=== PATIENT | female | born 1975 ===

== ENCOUNTER 2024-11-21 18:23 | Inpatient (IN) | payer BC, SELFPAY ==
[2024-11-21] VITALS (42 sets, daily range): BP systolic 77–128; BP diastolic 48–88; PULSE 79–119; RESP 14–26; TEMP 36.7–37.7; O2SAT 93–100
--- NOTE | ~2024-11-21 | US_ITS ---
EXAMINATION: US abdomen limited DATE: 11/22/2024 08:45 INDICATION: Elevated liver function tests TECHNIQUE: Multiple grayscale and Doppler ultrasound images of the abdomen were obtained. COMPARISON: CT dated 11/21/2024 FINDINGS: The pancreatic head and body are normal in appearance. The pancreatic tail is not visualized. Liver has normal contour, with a smooth surface. There is increased parenchymal echogenicity and coarsened echotexture consistent with diffuse hepatic steatosis. There is a 2.7 x 2.6 x 2.5 cm region of relati vely decreased echogenicity peripherally in segment 3 of the left hepatic lobe along the marciano hepati s which is also evident is a geographic region of subtly increased attenuation on the prior CT consis tent with focal fatty sparing. Additional smaller region of relatively hypoechoic and higher attenuat ion focal fatty sparing measuring 1.8 x 1.7 x 1.2 cm along the gallbladder fossa. No intrahepatic bi liary duct dilation suspected. Portal venous flow was seen in the hepatopetal, normal direction and h as normal Doppler waveform. The gallbladder is normal in appearance. There is no cholelithiasis. The common bile duct measures 5-6 mm, which is normal. Sonographic Reyes sign was reported as negative by the commercial escrow officer.Visualized portion of the proximal inferior vena cava is normal. IMPRESSION: 1. Diffuse hepatic steatosis with regions of focal hepatic steatosis along the gallbladder fossa and no significant 3 along the marciano hepatis. Reviewed, dictated and finalized at location A. ER MANAGER
--- NOTE | ~2024-11-21 | XR_ITS ---
EXAMINATION: XR retrograde pyelo w/stent RT DATE: 11/22/2024 00:57 INDICATION: Nephrolithiasis TECHNIQUE: 4 fluoroscopic images of the abdomen and pelvis were obtained during procedure performed veronica Duran. Radiologist was not present for the imaging or procedure. The amount of fluoroscopy t leidy used during this procedure was 0.7 minutes. COMPARISON: None. FINDINGS: Cannulation and retrograde contrast injection into the right ureter and renal collecting system. The 11 mm right renal stone identified on prior CT is unable to be visualized and may have either been ex tracted cores obscured by the contrast. A wire is advanced into the right renal collecting system and internal ureteral stent subsequently placed with proximal loop formed in the right renal pelvis. IMPRESSION: 1. Fluoroscopy utilized during right retrograde pyelogram and placement of a right internal ureteral stent which is in expected position. See procedure note for further detail. Reviewed, dictated and finalized at location A. [employer]OR HANGING AND TRIMMING IMPRESSION: 1. Fluoroscopy utilized during right retrograde pyelogram and placement of a ri ght internal ureteral stent which is in expected position. See procedure note f or further detail.
--- NOTE | ~2024-11-21 | CT_ITS ---
Clinical Indication: Right lower lobe lesion, liver lesion CT Scan of the Chest and Abdomen with Contrast: Technique: Contiguous sections were acquired throughout the chest and abdomen after intravenous admin istration of 100 cc of Omnipaque 350. Dose reduction technique was used on this scan by utilizing au tomated exposure control and iterative reconstruction technique. The dose-length product (DLP) was 66 6.62 mGy-cm. Comparison: 11/21/2024 Findings: There is no evidence of any significant mediastinal, hilar or axillary lymphadenopathy. The mediastin al soft tissues appear normal. There is no evidence of pleural or pericardial effusion. 5 mm pleural-based nodule present in the superior segment right lower lobe (axial image 35). 12 mm ri ght lower lobe pulmonary nodule present (axial image 66). 9 mm lingular nodule present, pleural-based (axial image 63). There is probable diffuse hepatic steatosis. The spleen, pancreas, gallbladder, adrenals and left kid daksha are within normal limits. Right ureteral stent in place. There is mild probable decreased right n ephrogram as compared to the left side, with minimal right hydronephrosis. Punctate nonobstructing ri ght renal stone present. No evidence of aortic aneurysm. No lymphadenopathy. Visualized bowel loops are unremarkable. No ascites. Impression: 3 pulmonary nodules, as above, largest measuring 12 mm at the right lower lobe. Consider short-term f ollow-up CT in 1-3 months, versus PET/CT or attempted tissue sampling. Probable diffuse hepatic steatosis. Right ureteral stent with minimal right hydronephrosis and mildly delayed right nephrogram as compare d to the left side. Correlate clinically for pyelonephritis. Punctate nonobstructing right renal ston e present. Reviewed, dictated and finalized at [facility]. NER MACHINE TENDER Impression: 3 pulmonary nodules, as above, largest measuring 12 mm at the right lower lobe. Consider short-term follow-up CT in 1-3 months, versus PET/CT or attempted tis mary alice sampling. Probable diffuse hepatic steatosis. Right ureteral stent with minimal right hydronephrosis and mildly delayed right nephrogram as compared to the left side. Correlate clinically for pyelonephrit is. Punctate nonobstructing right renal stone present.
--- NOTE | ~2024-11-21 | XR_ITS ---
CHEST RADIOGRAPH CLINICAL HISTORY: SOB, CP . COMPARISON: None available TECHNIQUE: Single portable view of the chest. FINDINGS The cardiomediastinal silhouette is unremarkable. The lungs are clear. Visualized osseous structures and soft tissues are unremarkable. IMPRESSION: No focal infiltrate or effusion. Reviewed, dictated and finalized at location A. MARKER
--- NOTE | ~2024-11-21 | CT_ITS ---
CLINICAL INDICATION: Diarrhea and leukocytosis COMPARISON: None. TECHNIQUE: Multiple contiguous axial images of the abdomen and pelvis were performed without the admi nistration of intravenous contrast The dose-length product (DLP) was 933.66 mGy-cm. Automated exposure control and iterative reconstruction technique were employed. FINDINGS/OBSERVATIONS: Visualized lower thorax: A 12 x 10 mm nodule is identified right lower lobe. The remainder of the bilateral lung bases are clear. The heart is of normal size, without pericardial effusion. Liver: The liver demonstrates homogeneous attenuation and is enlarged measuring 22 cm in longitudinal dimens ion. Gallbladder and biliary system: The gallbladder is only minimally distended, and otherwise unremarkable. Pancreas: Limited evaluation of the pancreas secondary to the lack of intravenous contrast. Spleen: The spleen demonstrates homogeneous attenuation and is not enlarged measuring 10 cm in longitudinal d imension. Kidneys: Significant right-sided hydronephrosis secondary to a 12 mm calculus within the distal right renal pe lvis. Multiple 2 and 3 mm calculi are identified within the remainder of the bilateral kidneys, nonobstruct ing. Adrenal glands: Unremarkable. Gastrointestinal tract: Multiple loops of fluid-filled bowel are identified, which are nondilated. . Appendix: The appendix is not definitively visualized. However, no pericecal inflammatory change is identified suggest the presence of acute appendicitis. Vasculature: Unremarkable. Lymph nodes: Limited evaluation without intravenous contrast. Pelvic structures: The bladder is only minimally distended, and otherwise unremarkable. The uterus is retroverted and retroflexed, and contains a 23 mm (likely) nabothian cyst. Bilateral ovaries are not confidently identified on the current examination secondary to the lack of intravenous contrast.. Body wall and musculoskeletal: Degenerative disease at the level of L5/S1 with disc space narrowing and vacuum phenomena. IMPRESSION: Significant right-sided hydronephrosis secondary to a 12 mm calculus in the distal right renal pelvis . 12 x 10 mm nodule within the right lower lobe for which dedicated CT examination of the chest is laura mmended, when the patient is clinically able. Hepatomegaly. Reviewed, dictated and finalized at location A. RUCTIONAL COORDINATOR IMPRESSION: Significant right-sided hydronephrosis secondary to a 12 mm calculus in the dis evans right renal pelvis. 12 x 10 mm nodule within the right lower lobe for which dedicated CT examinatio n of the chest is recommended, when the patient is clinically able. Hepatomegaly.
--- NOTE | ~2024-11-21 | XR_ITS ---
EXAMINATION: XR abdomen/kub 1V DATE: 11/24/2024 09:41 INDICATION: Renal stone position TECHNIQUE: A supine view of the abdomen on 2 radiographs was obtained. COMPARISON: CT dated 11/24/2024 FINDINGS: Right internal ureteral stent in expected position with loops formed over the right renal pelvis and the bladder. There is residual. Contrast opacification the bilateral kidneys with excreted contrast i n the bilateral renal collecting systems, along portions of the left ureter and in the bladder. This limits assessment for nephrolithiasis. Based upon the morphology of the opacity, the previously seen stone in the right renal pelvis along side the proximal loop of the stent appears to remain in unchan ged position. There are few phleboliths in the pelvis. Visualized mid to lower lungs are clear with n o airspace opacities, pulmonary edema or pleural effusion. Heart size is normal. Bones are unremarkab le. IMPRESSION: 1. Persistent stone in the right renal pelvis along side the proximal loop of a right internal ureter al stent which is in expected position. Reviewed, dictated and finalized at location B. ETING CONSULTANT IMPRESSION: 1. Persistent stone in the right renal pelvis along side the proximal loop of a right internal ureteral stent which is in expected position.
--- NOTE | ~2024-11-21 | US_ITS ---
EXAMINATION: US renal BI DATE: 11/22/2024 08:39 INDICATION: Acute renal insufficiency, hydronephrosis and right renal pelvic stone TECHNIQUE: Multiple ultrasound grayscale images of the kidneys were obtained. COMPARISON: None. FINDINGS: The right kidney measures 14.2 x 5.9 x 6.4 cm. The left kidney measures 12.7 x 6.0 x 6.2 cm. The kidn eys demonstrate normal echogenicity. There is minimal hydronephrosis of the right kidney which appear s decreased since the prior CT with interval intraureteral stent placement which is not clearly visib le on the current images. There is no hydronephrosis in the left kidney. A stone previously seen at the right renal pelvis on the prior CT is not visualized. Correlate with procedure note for possible extraction. The bladder is normal. IMPRESSION: 1. Persistent mild asymmetric swelling of the right kidney with decreased now minimal hydronephrosis post interval right internal ureteral stent placement. The previously obstructing stone at the renal pelvis is not identified and may have been extracted. Correlate with procedure note. 2. Normal left kidney with no hydronephrosis. Reviewed, dictated and finalized at location A. EY ASSOCIATE IMPRESSION: 1. Persistent mild asymmetric swelling of the right kidney with decreased now minimal hydronephrosis post interval right internal ureteral stent placement. T he previously obstructing stone at the renal pelvis is not identified and may h ave been extracted. Correlate with procedure note. 2. Normal left kidney with no hydronephrosis.
--- NOTE | 2024-11-21 18:36 | ECG_ITS ---
Test Date: 2024-11-21 18:40:27 Measurements Intervals [place] Rate: 107 P: 38 MO: 166 QRS: 22 QRSD: 91 T: 26 QT: 357 QTc: 477 Interpretive Statements SINUS TACHYCARDIA NONSPECIFIC T-WAVE ABNORMALITY ABNORMAL RHYTHM ECG No previous ECG available for comparison Electronically Signed On 11-21-2024 23:49:08 MEASUREMENT AND SENSING TECHNICIAN by Erika Toledo M.D.
[2024-11-21] MEDS: SODIUM CHLORIDE 0.9% IV 1,000 ML 999 ML IV CONT ×3 (18:44→19:24)
[2024-11-21 18:45] LABS: Hemoglobin 11.3 g/dL (12.0-15.0); Mean Corpuscular HGB Conc 33.2 g/dl (32-36); Mean Corpuscular Hemoglobin 27.7 pg (26-34); Mean Corpuscular Volume 83.3 fl (80-100); Platelet Count Result 257 k/mm3 (150-375); Red Blood Count 4.08 M/mm3 (4.2-5.4); Red Cell Distribution Width 14.6 % (11.5-14.5); White Blood Count 21.7 K/mm3 (4.5-10.0)
[2024-11-21 18:59] LABS: Alanine Aminotransferase 63 U/L (6-35); Albumin Level 3.3 g/dL (3.5-5.1); Alkaline Phosphatase 183 U/L (38-126); Anion Gap 13 mmol/L (4-12); Aspartate Amino Transferase 46 U/L (14-36); Bilirubin,Total 2.3 mg/dL (0.2-1.3); Blood Urea Nitrogen 26 mg/dL (7-17); Calcium 8.3 mg/dL (8.4-10.2); Carbon Dioxide 24 mmol/L (22-30); Chloride 95 mmol/L (98-107); Estimated CRCL calculation 32 ml/min; Estimated Glomerular Filt Rate 26; Glucose 126 mg/dL (65-110); Potassium 3.4 mmol/L (3.4-5.0); Sodium 132 mmol/L (137-145)
[2024-11-21 19:08] LABS: Band Neutrophils Percent 3 % (0-6); Lymphocytes Absolute Manual 0.86 K/mm3 (1.1-4.5); Monocytes Absolute Manual 0.43 K/mm3 (0.1-0.90); Monocytes Percent Manual 2 % (3-9); Neutrophils Absolute Manual 20.39 K/mm3 (1.7-7.2); Neutrophils Percent Manual 91 % (46-73); Platelet Clumps Present; Platelet Estimate Adequate (Adequate); Schistocytes None Seen; Total Cells Counted 100
[2024-11-21 19:26] LABS: Magnesium 1.7 mg/dL (1.6-2.3)
[2024-11-21 19:40] LABS: Troponin I < 0.012 ng/mL (0.000-0.034)
[2024-11-21 19:43] LABS: INR 1.4; Prothrombin Time 17.5 Seconds (11.1-14.7)
[2024-11-21 19:44] LABS: Partial Thromboplastin Time 33.6 Seconds (22.3-36.8)
--- NOTE | 2024-11-21 19:44 | ED_ITS ---
HPI - General Adult General Chief complaint: Fever Stated complaint: fever, h/a, neg. swabs Time Seen by Provider: 11/21/24 19:11 History of Present Illness HPI narrative: Patient 49-year-old female who presents emergency department with chief complaint of febrile illness patient reports that she was in [place] and started having nausea vomiting and diarrhea the patient reports that she started oral hydration and was given a prescription for Zofran by an urgent care down there the patient [place] and reports that she had a fever and has felt unwell the patient was seen in urgent care and sent to the emergency department for evaluation. Related Data Allergies Allergy/AdvReac Type Severity Reaction Status Date / Time No Known Allergies Allergy Mild Verified 11/21/24 18:24 Review of Systems 2 Review of Systems: A 10 system review of systems was completed on the patient and is negative except for what is stated in the HPI. Nursing and ancillary documentation was reviewed. [facility] Past Medical History Medical History Leukocytosis Sepsis Urinary tract infection Social History Social History Smoking status: Never smoker Alcohol intake: never Exam 2 Narrative: GENERAL: Well-appearing, well-nourished, and in no acute distress. HEAD: Normocephalic, atraumatic. EYES: PERRLA and EOMI. ENT: Nares clear, no rhinorrhea or epistaxis. Mucous membranes moist. NECK: Supple. CHEST: Clear to auscultation. No respiratory distress. HEART: Regular rate and rhythm. No murmur heard. Normal peripheral pulses. ABDOMEN: Soft, nontender, nondistended, normal active bowel sounds. EXTREMITIES: Normal range of motion. No edema. SKIN: Warm, dry, no rash. NEURO: No focal deficits. Alert and oriented x3. PSYCH: Normal mood and affect. Course Vital Signs Vital signs: Vital Signs Temperature 37.7 C H 11/21/24 18:26 Pulse Rate 119 H 11/21/24 18:26 Respiratory Rate 20 11/21/24 18:26 Blood Pressure 77/48 L 11/21/24 18:26 Pulse Oximetry 98 11/21/24 18:26 Oxygen Delivery Room Air 11/21/24 18:26 Temperature 36.8 C 11/21/24 22:54 Pulse Rate 84 11/21/24 23:58 Respiratory Rate 16 11/21/24 23:58 Blood Pressure 119/63 11/21/24 23:58 Pulse Oximetry 99 11/21/24 23:58 Oxygen Delivery Room Air 11/21/24 18:26 Medical Decision Making Vital Signs Vital Signs: Vital Signs Temperature 37.7 C H 11/21/24 18:26 Pulse Rate 119 H 11/21/24 18:26 Respiratory Rate 20 11/21/24 18:26 Blood Pressure 77/48 L 11/21/24 18:26 Pulse Oximetry 98 11/21/24 18:26 Oxygen Delivery Room Air 11/21/24 18:26 Temperature 36.8 C 11/21/24 22:54 Pulse Rate 84 11/21/24 23:58 Respiratory Rate 16 11/21/24 23:58 Blood Pressure 119/63 11/21/24 23:58 Pulse Oximetry 99 11/21/24 23:58 Oxygen Delivery Room Air 11/21/24 18:26 Lab Data 11/21/24 18:39 11/21/24 18:39 Labs: Lab Results 11/21/24 11/21/24 11/21/24 Range/Units 18:39 19:10 19:34 WBC 21.7 H (4.5-10.0) K/mm3 RBC 4.08 L (4.2-5.4) M/mm3 Hgb 11.3 L (12.0-15.0) g/dL Hct 34.0 L (37.0-47.0) % MCV 83.3 (80-100) fl MCH 27.7 (26-34) pg MCHC 33.2 (32-36) g/dl RDW 14.6 H (11.5-14.5) % Plt Count 257 (150-375) k/mm3 MPV 10.0 (7.4-10.4) fl Immature Gran % (Auto) Not Reportable Neut % (Auto) Not Reportable Lymph % (Auto) Not Reportable [place] % (Auto) Not Reportable Eos % (Auto) Not Reportable Baso % (Auto) Not Reportable Lymph # (Auto) Not Reportable [place] # (Auto) Not Reportable Eos # (Auto) Not Reportable Baso # (Auto) Not Reportable Abs Immat Gran (auto) Not Reportable Absolute Neuts (auto) Not Reportable Absolute Nucleated RBC Not Reportable Total Counted 100 Neutrophils % (Manual) 91 H (46-73) % Band Neutrophils % 3 (0-6) % Lymphocytes % (Manual) 4.0 L (18-44) % Monocytes % (Manual) 2 L (3-9) % Nucleated RBC % Not Reportable Abs Neuts (Manual) 20.39 H (1.7-7.2) K/mm3 Abs Lymphs (Manual) 0.86 L (1.1-4.5) K/mm3 Abs Monocytes (Manual) 0.43 (0.1-0.90) K/mm3 Platelet Estimate Adequate (Adequate) Clumped Platelets Present Schistocytes None seen PT 17.5 H (11.1-14.7) Seconds INR 1.4 APTT 33.6 (22.3-36.8) Seconds Sodium 132 L (137-145) mmol/L Potassium 3.4 (3.4-5.0) mmol/L Chloride 95 L (98-107) mmol/L Carbon Dioxide 24 (22-30) mmol/L Anion Gap 13 H (4-12) mmol/L BUN 26 H (7-17) mg/dL Creatinine 2.04 H (0.7-1.0) mg/dL Estim Creat Clear Calc 32 ml/min Estimated GFR 26 L (59 - ) Glucose 126 H (65-110) mg/dL Lactic Acid 1.4 (0.7-2.0) mmol/L Calcium 8.3 L (8.4-10.2) mg/dL Magnesium 1.7 (1.6-2.3) mg/dL Total Bilirubin 2.3 H (0.2-1.3) mg/dL AST 46 H (14-36) U/L ALT 63 H (6-35) U/L Alkaline Phosphatase 183 H (38-126) U/L Total Creatine Kinase (30-135) U/L Troponin I < 0.012 (0.000-0.034) ng/mL Total Protein 7.0 (6.3-8.2) g/dL Albumin 3.3 L (3.5-5.1) g/dL Procalcitonin 18.0 ng/mL Urine Color (Yellow) Urine Appearance (Clear) Urine pH (5.0-9.0) Ur Specific [place] (1.001-1.035) Urine Protein (Negative) mg/dL Urine Glucose (UA) (Negative) mg/dL Urine Ketones (Negative) mg/dL Ur Blood (Man) (Negative) Urine Nitrate (Negative) Urine Bilirubin (Negative) Urine Urobilinogen (<2.0) mg/dL Leukocyte Esterase Rfl (Negative) VIV/UL Urine RBC (0-2) /hpf Urine WBC (0-3) /hpf Ur Squamous Epith Cells (Few) /hpf Urine Bacteria /hpf Urine Casts Hepatitis A IgM Ab (Negative) Hep Bs Antigen (Negative) Hep B Core IgM Ab (Negative) Hepatitis C Ab Screen (Negative) Influenza A (RT-PCR) Negative (Negative) Influenza B (RT-PCR) Negative (Negative) RSV (RT-PCR) Negative (Negative) SARS-CoV-2 RNA (RT-PCR) Negative (Negative) Group A Strep (PCR) Not detected (Negative) 11/21/24 11/21/24 Range/Units 20:27 22:50 WBC (4.5-10.0) K/mm3 RBC (4.2-5.4) M/mm3 Hgb (12.0-15.0) g/dL Hct (37.0-47.0) % MCV (80-100) fl MCH (26-34) pg MCHC (32-36) g/dl RDW (11.5-14.5) % Plt Count (150-375) k/mm3 MPV (7.4-10.4) fl Immature Gran % (Auto) Neut % (Auto) Lymph % (Auto) [place] % (Auto) Eos % (Auto) Baso % (Auto) Lymph # (Auto) [place] # (Auto) Eos # (Auto) Baso # (Auto) Abs Immat Gran (auto) Absolute Neuts (auto) Absolute Nucleated RBC Total Counted Neutrophils % (Manual) (46-73) % Band Neutrophils % (0-6) % Lymphocytes % (Manual) (18-44) % Monocytes % (Manual) (3-9) % Nucleated RBC % Abs Neuts (Manual) (1.7-7.2) K/mm3 Abs Lymphs (Manual) (1.1-4.5) K/mm3 Abs Monocytes (Manual) (0.1-0.90) K/mm3 Platelet Estimate (Adequate) Clumped Platelets Schistocytes PT (11.1-14.7) Seconds INR APTT (22.3-36.8) Seconds Sodium (137-145) mmol/L Potassium (3.4-5.0) mmol/L Chloride (98-107) mmol/L Carbon Dioxide (22-30) mmol/L Anion Gap (4-12) mmol/L BUN (7-17) mg/dL Creatinine (0.7-1.0) mg/dL Estim Creat Clear Calc ml/min Estimated GFR (59 - ) Glucose (65-110) mg/dL Lactic Acid (0.7-2.0) mmol/L Calcium (8.4-10.2) mg/dL Magnesium (1.6-2.3) mg/dL Total Bilirubin (0.2-1.3) mg/dL AST (14-36) U/L ALT (6-35) U/L Alkaline Phosphatase (38-126) U/L Total Creatine Kinase 27 L (30-135) U/L Troponin I (0.000-0.034) ng/mL Total Protein (6.3-8.2) g/dL Albumin (3.5-5.1) g/dL Procalcitonin ng/mL Urine Color Yellow (Yellow) Urine Appearance Turbid H (Clear) Urine pH 5.5 (5.0-9.0) Ur Specific [place] 1.006 (1.001-1.035) Urine Protein 1+ H (Negative) mg/dL Urine Glucose (UA) Negative (Negative) mg/dL Urine Ketones Negative (Negative) mg/dL Ur Blood (Man) 2+ H (Negative) Urine Nitrate Negative (Negative) Urine Bilirubin Negative (Negative) Urine Urobilinogen 0.2 (<2.0) mg/dL Leukocyte Esterase Rfl 3+ H (Negative) VIV/UL Urine RBC 0-2 (0-2) /hpf Urine WBC >100 H (0-3) /hpf Ur Squamous Epith Cells None seen (Few) /hpf Urine Bacteria Rare /hpf Urine Casts 6-10 Hepatitis A IgM Ab Negative (Negative) Hep Bs Antigen Negative (Negative) Hep B Core IgM Ab Negative (Negative) Hepatitis C Ab Screen Negative (Negative) Influenza A (RT-PCR) (Negative) Influenza B (RT-PCR) (Negative) RSV (RT-PCR) (Negative) SARS-CoV-2 RNA (RT-PCR) (Negative) Group A Strep (PCR) (Negative) Critical Care Time Critical Care Time Critical Care Time: Yes Total Critical Care Time: 75 Discharge Plan Discharge Clinical Impression: Leukocytosis, NYASIA (acute kidney injury), Sepsis, UTI (urinary tract infection), Ureterolithiasis Patient Disposition: Still a Patient Condition: Stable Patient Language: Tajik Follow-up/Referrals: Ford Ivy MD [Primary Care Provider] - Time of Disposition: 00:03
[2024-11-21 19:54] LABS: Lactic Acid Reflex 1.4 mmol/L (0.7-2.0)
[2024-11-21 20:07] LABS: Strep Group A RT-PCR NOT DETECTED (Negative)
[2024-11-21 20:18] LABS: Influenza A QL RT-PCR Negative (Negative); Influenza B QL RT-PCR Negative (Negative); RSV RNA, RT-PCR Negative (Negative); SARS-CoV-2 RNA PCR Negative (Negative)
[2024-11-21] MEDS: MAGNESIUM SULF 1 GM/D5W 100 ML 1 GM/100 ML BAG IVPB (20:26)
[2024-11-21 21:21] LABS: Add Urine Microscopic? YES; Appearance Urine Turbid (Clear); Bacteria Urine Rare /hpf; Bilirubin Urine Negative (Negative); Blood Urine 2+ (Negative); Color Urine Yellow (Yellow); Glucose Urine UA Negative (Negative); Ketones Urine Negative (Negative); Leukocyte Esterase Ur 3+ LEU/UL (Negative); Nitrate Urine Negative (Negative); Protein Urine 1+ mg/dL (Negative); RBC Urine 0-2 /hpf (0-2); Specific Grav Ur 1.006 (1.001-1.035); Squamous Epithelial Cell Urine None Seen /hpf (Few); Urobilinogen Urine 0.2 mg/dL (<2.0); WBC Urine >100 /hpf (0-3); pH Urine 5.5 (5.0-9.0)
--- NOTE | 2024-11-21 22:35 | P.HP_ITS ---
H&P: HPI History of Present Illness Date/Time: 11/21/24 22:35 Chief Complaint: Fever, nausea, vomiting. Narrative: This is a previously healthy 49-year-old female who presented to the emergency department with complaints of fever, nausea, and vomiting. [facility] Social History Social History Smoking status: Never smoker Alcohol intake: never Meds Home Medications and Allergies Allergies Allergy/AdvReac Type Severity Reaction Status Date / Time No Known Allergies Allergy Mild Verified 11/21/24 18:24 Vital Signs Vital Signs - 24 hr 11/21/24 18:26 11/21/24 18:29 11/21/24 18:31 Temperature 99.8 F H Pulse Rate 119 H Respiratory Rate 20 Blood Pressure 77/48 L 91/52 L 93/64 L Pulse Oximetry 98 Oxygen Delivery Room Air 11/21/24 20:44 Temperature 98.1 F Pulse Rate 88 Respiratory Rate 16 Blood Pressure 107/88 Pulse Oximetry 100 Oxygen Delivery H&P: Results Labs Labs: Short CBC 11/21/24 Range/Units 18:39 WBC 21.7 H (4.5-10.0) K/mm3 Hgb 11.3 L (12.0-15.0) g/dL Hct 34.0 L (37.0-47.0) % Plt Count 257 (150-375) k/mm3 BMP 11/21/24 18:39 Sodium 132 L Potassium 3.4 Chloride 95 L Carbon Dioxide 24 BUN 26 H Creatinine 2.04 H Glucose 126 H Calcium 8.3 L Cardiac Enzymes 11/21/24 Range/Units 18:39 Troponin I < 0.012 (0.000-0.034) ng/mL Liver Function 11/21/24 Range/Units 18:39 Total Bilirubin 2.3 H (0.2-1.3) mg/dL AST 46 H (14-36) U/L ALT 63 H (6-35) U/L Alkaline Phosphatase 183 H (38-126) U/L Albumin 3.3 L (3.5-5.1) g/dL Urine 11/21/24 Range/Units 20:27 Urine Color Yellow (Yellow) Urine Appearance Turbid H (Clear) Urine pH 5.5 (5.0-9.0) Ur Specific [place] 1.006 (1.001-1.035) Urine Protein 1+ H (Negative) mg/dL Urine Glucose (UA) Negative (Negative) mg/dL Assessment and Plan Assessment and plan (1) Sepsis: Code(s): A41.9 - Sepsis, unspecified organism Status: Acute (2) Urinary tract infection: Code(s): N39.0 - Urinary tract infection, site not specified Status: Acute (3) Stone in renal pelvis: Code(s): N20.0 - Calculus of kidney Status: Acute (4) Acute kidney injury: Code(s): N17.9 - Acute kidney failure, unspecified Status: Acute (5) Hydronephrosis of right kidney: Code(s): N13.30 - Unspecified hydronephrosis Status: Acute (6) Right lower lobe pulmonary nodule: Code(s): R91.1 - Solitary pulmonary nodule Status: Acute (7) Elevated LFTs: Code(s): R79.89 - Other specified abnormal findings of blood chemistry Status: Acute Quality VTE Prophylaxis VTE prophylaxis: mechanical ordered If No VTE Prophylaxis Answer both mechanical and pharmacologic: Reason no pharmacologic proph: medical contraindication (anticipate going to OR) The patient has been admitted under observation status. Hospitalist MIPS Advance Care Plan I have confirmed that the patient's Advanced Care Plan is present, code status is documented, or surrogate decision maker is listed in patient medical record.: Yes Medication Reconciliation I have utilized all available resources to obtain, update and review the patients current medications (includes all prescriptions, OTC, herbals, cannabis, and nutritional supplements).: Yes
[2024-11-21] MEDS: SODIUM CHLORIDE 0.9% IV 1,000 ML 100 ML IV CONT (22:51)
[2024-11-21 23:08] LABS: Creatine Kinase 27 U/L (30-135)
--- NOTE | 2024-11-21 23:35 | P.PNAN_ITS ---
Anes - Initial Pre Proc Eval Procedure: right cysto with stone extraction Date/Time: 11/21/24 23:35 Pre Op Diagnosis: fever, h/a, neg. swabs Patient Data Age: 49 Gender: F Height: 1.63 m Weight: 88.4 kg Last Vital Signs Temp 98.2 F 11/21/24 22:54 Pulse 88 11/21/24 22:54 Resp 14 11/21/24 22:54 BP 120/75 11/21/24 22:54 Pulse Ox 93 11/21/24 22:54 O2 Del Method Room Air 11/21/24 18:26 Allergies Allergy/AdvReac Type Severity Reaction Status Date / Time No Known Allergies Allergy Mild Verified 11/21/24 18:24 Laboratory Tests 11/21/24 11/21/24 11/21/24 18:39 19:10 19:34 WBC 21.7 H K/mm3 (4.5-10.0) RBC 4.08 L M/mm3 (4.2-5.4) Hgb 11.3 L g/dL (12.0-15.0) Hct 34.0 L % (37.0-47.0) MCV 83.3 fl (80-100) MCH 27.7 pg (26-34) MCHC 33.2 g/dl (32-36) RDW 14.6 H % (11.5-14.5) Plt Count 257 k/mm3 (150-375) MPV 10.0 fl (7.4-10.4) Immature Gran % (Auto) Not Reportable Neut % (Auto) Not Reportable Lymph % (Auto) Not Reportable [place] % (Auto) Not Reportable Eos % (Auto) Not Reportable Baso % (Auto) Not Reportable Lymph # (Auto) Not Reportable [place] # (Auto) Not Reportable Eos # (Auto) Not Reportable Baso # (Auto) Not Reportable Abs Immat Gran (auto) Not Reportable Absolute Neuts (auto) Not Reportable Absolute Nucleated RBC Not Reportable Total Counted 100 Neutrophils % (Manual) 91 H % (46-73) Band Neutrophils % 3 % (0-6) Lymphocytes % (Manual) 4.0 L % (18-44) Monocytes % (Manual) 2 L % (3-9) Nucleated RBC % Not Reportable Abs Neuts (Manual) 20.39 H K/mm3 (1.7-7.2) Abs Lymphs (Manual) 0.86 L K/mm3 (1.1-4.5) Abs Monocytes (Manual) 0.43 K/mm3 (0.1-0.90) Platelet Estimate Adequate (Adequate) Clumped Platelets Present Schistocytes None seen PT 17.5 H Seconds (11.1-14.7) INR 1.4 APTT 33.6 Seconds (22.3-36.8) Sodium 132 L mmol/L (137-145) Potassium 3.4 mmol/L (3.4-5.0) Chloride 95 L mmol/L (98-107) Carbon Dioxide 24 mmol/L (22-30) Anion Gap 13 H mmol/L (4-12) BUN 26 H mg/dL (7-17) Creatinine 2.04 H mg/dL (0.7-1.0) Estim Creat Clear Calc 32 ml/min Estimated GFR 26 L (59 - ) Glucose 126 H mg/dL (65-110) Lactic Acid 1.4 mmol/L (0.7-2.0) Calcium 8.3 L mg/dL (8.4-10.2) Magnesium 1.7 mg/dL (1.6-2.3) Total Bilirubin 2.3 H mg/dL (0.2-1.3) AST 46 H U/L (14-36) ALT 63 H U/L (6-35) Alkaline Phosphatase 183 H U/L (38-126) Total Creatine Kinase Troponin I < 0.012 ng/mL (0.000-0.034) Total Protein 7.0 g/dL (6.3-8.2) Albumin 3.3 L g/dL (3.5-5.1) Procalcitonin 18.0 ng/mL Urine Color Urine Appearance Urine pH Ur Specific [place] Urine Protein Urine Glucose (UA) Urine Ketones Ur Blood (Man) Urine Nitrate Urine Bilirubin Urine Urobilinogen Leukocyte Esterase Rfl Urine RBC Urine WBC Ur Squamous Epith Cells Urine Bacteria Urine Casts Hepatitis A IgM Ab Hep Bs Antigen Hep B Core IgM Ab Hepatitis C Ab Screen Influenza A (RT-PCR) Negative (Negative) Influenza B (RT-PCR) Negative (Negative) RSV (RT-PCR) Negative (Negative) SARS-CoV-2 RNA (RT-PCR) Negative (Negative) Group A Strep (PCR) Not detected (Negative) 11/21/24 11/21/24 20:27 22:50 WBC RBC Hgb Hct MCV MCH MCHC RDW Plt Count MPV Immature Gran % (Auto) Neut % (Auto) Lymph % (Auto) [place] % (Auto) Eos % (Auto) Baso % (Auto) Lymph # (Auto) [place] # (Auto) Eos # (Auto) Baso # (Auto) Abs Immat Gran (auto) Absolute Neuts (auto) Absolute Nucleated RBC Total Counted Neutrophils % (Manual) Band Neutrophils % Lymphocytes % (Manual) Monocytes % (Manual) Nucleated RBC % Abs Neuts (Manual) Abs Lymphs (Manual) Abs Monocytes (Manual) Platelet Estimate Clumped Platelets Schistocytes PT INR APTT Sodium Potassium Chloride Carbon Dioxide Anion Gap BUN Creatinine Estim Creat Clear Calc Estimated GFR Glucose Lactic Acid Calcium Magnesium Total Bilirubin AST ALT Alkaline Phosphatase Total Creatine Kinase 27 L U/L (30-135) Troponin I Total Protein Albumin Procalcitonin Urine Color Yellow (Yellow) Urine Appearance Turbid H (Clear) Urine pH 5.5 (5.0-9.0) Ur Specific [place] 1.006 (1.001-1.035) Urine Protein 1+ H mg/dL (Negative) Urine Glucose (UA) Negative mg/dL (Negative) Urine Ketones Negative mg/dL (Negative) Ur Blood (Man) 2+ H (Negative) Urine Nitrate Negative (Negative) Urine Bilirubin Negative (Negative) Urine Urobilinogen 0.2 mg/dL (<2.0) Leukocyte Esterase Rfl 3+ H VIV/UL (Negative) Urine RBC 0-2 /hpf (0-2) Urine WBC >100 H /hpf (0-3) Ur Squamous Epith Cells None seen /hpf (Few) Urine Bacteria Rare /hpf Urine Casts 6-10 Hepatitis A IgM Ab Pending Hep Bs Antigen Pending Hep B Core IgM Ab Pending Hepatitis C Ab Screen Pending Influenza A (RT-PCR) Influenza B (RT-PCR) RSV (RT-PCR) SARS-CoV-2 RNA (RT-PCR) Group A Strep (PCR) Patient hx anesthesia problems: none Family hx anesthesia problems: none Results Review: All pre-operative results and documents have been reviewed as part of the pre- operative evaluation. [facility] Past Medical History Medical History Leukocytosis Sepsis Urinary tract infection Social History Social History Smoking status: Never smoker Alcohol intake: never Anes - Eval Final PreProcedure Day of Procedure 11/21/24 23:35 Patient weight: obese Heart: regular rate and rhythm Lungs: clear to auscultation Airway: Mallampati scale class II Neurological: alert and oriented Last oral intake: >/= 8 hours ASA classification: III Emergent: yes Anesthetic plan: proceed Anesthesia type and monitoring: general Results Review: All pre-operative results and documents have been reviewed as part of the pre- operative evaluation. Informed Consent: The patient's anesthetic plan and its attendant risks and benefits were discussed with the patient/family/POA. Questions were solicited and answers provided to the satisfaction of the patient/family/POA.
[2024-11-21 23:39] LABS: Hepatitis B Surface Antigen Negative (Negative)
[2024-11-21 23:45] LABS: HAV RESULT Negative (Negative); Hepatitis B Core IgM Result Negative (Negative)
[2024-11-21 23:57] LABS: Hepatitis C Virus Antibody Negative (Negative)
[2024-11-22] VITALS (12 sets, daily range): BP systolic 98–142; BP diastolic 58–82; PULSE 70–85; RESP 12–20; TEMP 36.2–37.2; O2SAT 96–100; BMI 34.9
--- NOTE | 2024-11-22 00:06 | PC.NURSE ---
pt transferred to OR / PACU at this time via stretcher
--- NOTE | 2024-11-22 00:16 | P.PNAN_ITS ---
Anes - Eval Final PreProcedure Day of Procedure 11/22/24 00:16 Patient weight: obese Heart: regular rate and rhythm Lungs: clear to auscultation Airway: Mallampati scale class II Neurological: alert and oriented Last oral intake: >/= 8 hours ASA classification: III Emergent: no Anesthetic plan: proceed Anesthesia type and monitoring: general GIVS and standard monitoring Results Review: All pre-operative results and documents have been reviewed as part of the pre- operative evaluation. Informed Consent: The patient's anesthetic plan and its attendant risks and benefits were discussed with the patient/family/POA. Questions were solicited and answers provided to the satisfaction of the patient/family/POA.
--- NOTE | 2024-11-22 00:16 | PM.IMHP ---
H&P: HPI History of Present Illness Date/Time: 11/22/24 00:16 Chief Complaint: right renal stone and fever, septic Review of Systems Review of Systems: All systems reviewed & are unremarkable except as noted in HPI and below (right renal colic, fever, nausea) Constitutional: Constitutional: Reports as per HPI Eyes: Eyes: Reports as per HPI ENT: Reports system reviewed and no additional complaints, except as documented Gastrointestinal: Gastrointestinal: Reports as per HPI and Reports no additional gastrointestinal complaints PMFSH Past Medical History Medical History Leukocytosis Sepsis Urinary tract infection Social History Social History Smoking status: Never smoker Alcohol intake: never Meds Home Medications and Allergies Allergies Allergy/AdvReac Type Severity Reaction Status Date / Time No Known Allergies Allergy Mild Verified 11/21/24 18:24 Vital Signs Vital Signs - 24 hr 11/21/24 18:26 11/21/24 18:29 11/21/24 18:31 Temperature 37.7 C H Pulse Rate 119 H Respiratory Rate 20 Blood Pressure 77/48 L 91/52 L 93/64 L Pulse Oximetry 98 Oxygen Delivery Room Air 11/21/24 18:38 11/21/24 18:39 11/21/24 18:44 Temperature Pulse Rate 110 H 109 H 107 H Respiratory Rate 22 H 21 H 15 Blood Pressure 88/61 L 89/60 L Pulse Oximetry 97 Oxygen Delivery 11/21/24 18:45 11/21/24 18:46 11/21/24 19:00 Temperature Pulse Rate 102 H 105 H 97 Respiratory Rate 17 18 15 Blood Pressure 92/65 L 99/61 L Pulse Oximetry 99 98 Oxygen Delivery 11/21/24 19:01 11/21/24 19:15 11/21/24 19:16 Temperature Pulse Rate 99 96 96 Respiratory Rate 18 20 22 H Blood Pressure 107/70 Pulse Oximetry 99 100 98 Oxygen Delivery 11/21/24 19:30 11/21/24 19:31 11/21/24 19:45 Temperature Pulse Rate 98 95 96 Respiratory Rate 19 17 21 H Blood Pressure 113/73 116/79 Pulse Oximetry 100 99 Oxygen Delivery 11/21/24 19:46 11/21/24 20:00 11/21/24 20:15 Temperature Pulse Rate 97 98 93 Respiratory Rate 26 H 21 H 23 H Blood Pressure Pulse Oximetry Oxygen Delivery 11/21/24 20:30 11/21/24 20:32 11/21/24 20:44 Temperature 36.7 C Pulse Rate 93 92 88 Respiratory Rate 21 H 25 H 16 Blood Pressure 95/68 L 107/88 Pulse Oximetry 96 96 100 Oxygen Delivery 11/21/24 21:34 11/21/24 21:35 11/21/24 21:45 Temperature Pulse Rate 90 90 90 Respiratory Rate 19 20 19 Blood Pressure 123/74 115/77 Pulse Oximetry 97 97 97 Oxygen Delivery 11/21/24 21:46 11/21/24 22:00 11/21/24 22:01 Temperature Pulse Rate 90 88 86 Respiratory Rate 18 18 19 Blood Pressure 119/76 Pulse Oximetry 97 97 97 Oxygen Delivery 11/21/24 22:15 11/21/24 22:16 11/21/24 22:30 Temperature Pulse Rate 85 85 84 Respiratory Rate 14 16 18 Blood Pressure 121/73 117/73 Pulse Oximetry 99 99 97 Oxygen Delivery 11/21/24 22:31 11/21/24 22:45 11/21/24 22:46 Temperature Pulse Rate 84 85 87 Respiratory Rate 18 17 17 Blood Pressure 120/75 Pulse Oximetry 97 97 94 Oxygen Delivery 11/21/24 22:54 11/21/24 23:00 11/21/24 23:01 Temperature 36.8 C Pulse Rate 88 87 85 Respiratory Rate 14 17 17 Blood Pressure 120/75 122/74 Pulse Oximetry 93 97 95 Oxygen Delivery 11/21/24 23:20 11/21/24 23:30 11/21/24 23:31 Temperature Pulse Rate 93 80 79 Respiratory Rate 22 H 15 16 Blood Pressure 127/78 Pulse Oximetry 99 98 98 Oxygen Delivery 11/21/24 23:45 11/21/24 23:46 11/21/24 23:58 Temperature Pulse Rate 80 80 84 Respiratory Rate 17 17 16 Blood Pressure 128/85 119/63 Pulse Oximetry 97 96 99 Oxygen Delivery Exam Narrative: mild right renal colic Const: General: cooperative, healthy appearing, well developed, alert and awake HENMT: Head: normal to inspection Eyes: General: appearance normal, both eyes and all related structures Resp: Effort & Inspection: normal respiratory effort GI: Inspection: normal to inspection : General: Yes bimanual renal exam normal bilaterally Neuro: General: oriented to person, oriented to place and tone normal Extrem: General: normal to inspection H&P: Results Labs Labs: Short CBC 11/21/24 Range/Units 18:39 WBC 21.7 H (4.5-10.0) K/mm3 Hgb 11.3 L (12.0-15.0) g/dL Hct 34.0 L (37.0-47.0) % Plt Count 257 (150-375) k/mm3 BMP 11/21/24 18:39 Sodium 132 L Potassium 3.4 Chloride 95 L Carbon Dioxide 24 BUN 26 H Creatinine 2.04 H Glucose 126 H Calcium 8.3 L Cardiac Enzymes 11/21/24 11/21/24 Range/Units 18:39 22:50 Total Creatine Kinase 27 L (30-135) U/L Troponin I < 0.012 (0.000-0.034) ng/mL Liver Function 11/21/24 Range/Units 18:39 Total Bilirubin 2.3 H (0.2-1.3) mg/dL AST 46 H (14-36) U/L ALT 63 H (6-35) U/L Alkaline Phosphatase 183 H (38-126) U/L Albumin 3.3 L (3.5-5.1) g/dL Urine 11/21/24 Range/Units 20:27 Urine Color Yellow (Yellow) Urine Appearance Turbid H (Clear) Urine pH 5.5 (5.0-9.0) Ur Specific [place] 1.006 (1.001-1.035) Urine Protein 1+ H (Negative) mg/dL Urine Glucose (UA) Negative (Negative) mg/dL Assessment and Plan Assessment and plan (1) UTI (urinary tract infection): Code(s): N39.0 - Urinary tract infection, site not specified Status: Acute (2) Hydronephrosis of right kidney: Code(s): N13.30 - Unspecified hydronephrosis Status: Acute (3) Stone in renal pelvis: Code(s): N20.0 - Calculus of kidney Status: Acute (4) Urinary tract infection: Code(s): N39.0 - Urinary tract infection, site not specified Status: Acute (5) Sepsis: Code(s): A41.9 - Sepsis, unspecified organism Status: Acute (6) Acute kidney injury: Code(s): N17.9 - Acute kidney failure, unspecified Status: Acute Plan right renal pelvic stone, hydronephrosis and fever Septic presentation plan IV antibiotics Cystoscopy and right stent placement
--- NOTE | 2024-11-22 00:21 | WPDHPUPDATE1 ---
History and Physical Update Update Date/Time: 11/22/24 00:21 History and Physical has been reviewed, including an updated exam of the patient. There are NO changes in the patient's condition. Risks, benefits, and alternatives have been discussed and questions answered. Patient agrees to proceed with procedure. cystoscopy and right stent placement
[2024-11-22 00:33] LABS: BEDSIDEPREGUCG Negative (Negative)
[2024-11-22] MEDS: LACTATED RINGERS 1,000 ML 30 ML IV CONT (00:46)
--- NOTE | 2024-11-22 00:57 | W.PM.PROC2 ---
Procedure Note - Detailed Date of Procedure 11/22/24 Pre-op Diagnosis fever, right renal stone, hydronephrosis Post-op Diagnosis Same Procedure Performed cystoscopy and right stent Surgeon Dinesh Duran MD Anesthesia MAC Indications right hydronephrosis and right renal stone, sepsis Findings RIght UPJ stone Description of Procedure Patient was brought to operating room. A monitored sedation was achieved. She was positioned lithotomy. Cystoscopy was completed with a 22 djiboutian scope. The bladder looked infected with cystitis. A right retrograde was completed and the stone was at the right UPJ. A glide wire was guided past the stone and a 6 djiboutian variable length stent was placed. The bladder was emptied. Estimated Blood Loss 0 Drains No Complications None Disposition Floor
--- NOTE | 2024-11-22 02:43 | ADMGEN ---
This patient, Francoise Schwartz, was admitted to Medical Room 250-01. Patient/family oriented to hospital policies and general routines including ID bracelet, bed and alarms, visiting hours, pain management, procedures, bathroom and other care routines, personal items, smoking policy, room service/diet, and visiting hours. Information on how to activate the Rapid Response Team has been discussed. Patient/Family are encouraged to report perceived risks to care and to ask questions if they do not understand what they are told or what they should do.
[2024-11-22 09:59] LABS: Basophils Absolute Auto 0.1 K/mm3 (0.0-0.1); Basophils Percent Auto 0.4 % (0.2-1.2); Eosinophils Absolute Auto 0.1 K/mm3 (0-0.3); Eosinophils Percent Auto 0.5 % (0-4.4); Hematocrit 27.4 % (37.0-47.0); Hemoglobin 9.1 g/dL (12.0-15.0); Immature Granulocyte Absolute 0.12 K/mm3 (0.00-0.031); Immature Granulocyte Percent A 0.9 % (0-0.5); Lymphocytes Absolute Auto 0.76 K/mm3 (0.9-3.2); Lymphocytes Percent Auto 5.4 % (18.3-44.2); Mean Corpuscular HGB Conc 33.2 g/dl (32-36); Mean Corpuscular Hemoglobin 28.3 pg (26-34); Mean Corpuscular Volume 85.1 fl (80-100); Monocytes Absolute Auto 0.8 K/mm3 (0.1-0.6); Monocytes Percent Auto 5.8 % (2.6-8.5); Neutrophils Absolute Auto 12.1 K/mm3 (1.3-6.7); Platelet Count Result 229 k/mm3 (150-375); Red Blood Count 3.22 M/mm3 (4.2-5.4); Red Cell Distribution Width 15.1 % (11.5-14.5)
[2024-11-22 10:09] LABS: Anion Gap 6 mmol/L (4-12); Blood Urea Nitrogen 22 mg/dL (7-17); Calcium 7.4 mg/dL (8.4-10.2); Carbon Dioxide 26 mmol/L (22-30); Chloride 106 mmol/L (98-107); Estimated CRCL calculation 56 ml/min; Estimated Glomerular Filt Rate 48; Glucose 110 mg/dL (65-110); Potassium 3.4 mmol/L (3.4-5.0); Sodium 138 mmol/L (137-145)
--- NOTE | 2024-11-22 12:28 | P.PNIM_ITS ---
Progress Note: A&P Assessment and Plan (1) Sepsis: Code(s): A41.9 - Sepsis, unspecified organism Status: Acute Assessment and Plan: -sepsis criteria met on admission: Fevers, tachycardia, tachypnea, leukocytos is, UA positive for possible UTI. -blood and urine cultures collected. -Sided on empiric broad-spectrum IV antibiotics. -follow cultures. (2) Urinary tract infection: Code(s): N39.0 - Urinary tract infection, site not specified Status: Acute Assessment and Plan: -UA positive for possible UTI on admission. -blood and urine cultures collected. -patient currently on ceftriaxone. -follow cultures. (3) Stone in renal pelvis: Code(s): N20.0 - Calculus of kidney Status: Acute Assessment and Plan: CT Abd/Pelvis: Significant right-sided hydronephrosis secondary to a 12 mm calculus in the distal right renal pelvis. 12 x 10 mm nodule within the right lower lobe for which dedicated CT examination of the chest is recommended, when the patient is clinically able. Hepatomegaly. -urology is consulted. -patient s/p cystoscopy and right stent placement. Repeat US Renal post procedure: 1. Persistent mild asymmetric swelling of the right kidney with decreased now minimal hydronephrosis post interval right internal ureteral stent placement. The previously obstructing stone at the renal pelvis is not identified and may have been extracted. Correlate with procedure note. 2. Normal left kidney with no hydronephrosis. -follow-up outpatient with urologist for further management. (4) Acute kidney injury: Code(s): N17.9 - Acute kidney failure, unspecified Status: Acute Assessment and Plan: -likely related to renal stone +/vs nausea and vomiting. -improving s/p stent placement + aggressive IV fluid hydration. -kidney function improving; Cr 2.04>>1.19. -continue to monitor closely with IV fluid hydration. -avoid nephrotoxins. (5) Hydronephrosis of right kidney: Code(s): N13.30 - Unspecified hydronephrosis Status: Acute Assessment and Plan: US Renal post-cystoscoly: Persistent mild asymmetric swelling of the right kidney with decreased now minimal hydronephrosis post interval right internal ureteral stent placement. The previously obstructing stone at the renal pelvis is not identified and may have been extracted. -Resolving post stent placement. - Outpatient f/u with urologist. (6) Right lower lobe pulmonary nodule: Code(s): R91.1 - Solitary pulmonary nodule Status: Acute Assessment and Plan: CT Abd/pelvis: 12 x 10 mm nodule within the right lower lobe for which dedicated CT examination of the chest is recommended, when the patient is clinically able. -will continue CT chest with contrast once patient's kidney function improves. -patient informed of findings. -further management pending CT chest results. (7) Elevated LFTs: Code(s): R79.89 - Other specified abnormal findings of blood chemistry Status: Acute Assessment and Plan: -patient noted with few regions of relatively decreased echogenicity and hypoechoic and high attenuation. -acute hepatitis virus PCR negative. -possibly related to infected. -will monitor trend and consider GI consultation.. Time Spent With Patient Time with patient: 15 - 25 minutes Subjective Date/time seen: 11/22/24 10:20 Patient calm on bedrest and states she feels good and has no pain or other distress. States that right flank pain has resolved but she is just tired as she did not get enough sleep overnight Interval history: Patient calm on bedrest and looks to be in no acute distress. Review of Systems Review of Systems: All systems reviewed & are unremarkable except as noted in HPI and below Exam Narrative: HEENT: Atraumatic, PERRL, EOMI, moist mucosa. Neck: Supple. Lungs: Clear bilaterally. Heart: RRR, no murmurs. Abdomen: Soft, nontender, obese, positive bowel sounds on all quadrants. Skin: Warm and dry with no lesions. Neuro: Well oriented, no focal neuro deficit noted. Psych:, calm and cooperative. Objective Data Vital Signs Vital Signs: Vital Signs - 24 hr 11/21/24 18:26 11/21/24 18:29 11/21/24 18:31 Temperature 99.8 F H Pulse Rate 119 H Respiratory Rate 20 Blood Pressure 77/48 L 91/52 L 93/64 L Pulse Oximetry 98 Oxygen Delivery Room Air Oxygen Flow Rate 11/21/24 18:38 11/21/24 18:39 11/21/24 18:44 Temperature Pulse Rate 110 H 109 H 107 H Respiratory Rate 22 H 21 H 15 Blood Pressure 88/61 L 89/60 L Pulse Oximetry 97 Oxygen Delivery Oxygen Flow Rate 11/21/24 18:45 11/21/24 18:46 11/21/24 19:00 Temperature Pulse Rate 102 H 105 H 97 Respiratory Rate 17 18 15 Blood Pressure 92/65 L 99/61 L Pulse Oximetry 99 98 Oxygen Delivery Oxygen Flow Rate 11/21/24 19:01 11/21/24 19:15 11/21/24 19:16 Temperature Pulse Rate 99 96 96 Respiratory Rate 18 20 22 H Blood Pressure 107/70 Pulse Oximetry 99 100 98 Oxygen Delivery Oxygen Flow Rate 11/21/24 19:30 11/21/24 19:31 11/21/24 19:45 Temperature Pulse Rate 98 95 96 Respiratory Rate 19 17 21 H Blood Pressure 113/73 116/79 Pulse Oximetry 100 99 Oxygen Delivery Oxygen Flow Rate 11/21/24 19:46 11/21/24 20:00 11/21/24 20:15 Temperature Pulse Rate 97 98 93 Respiratory Rate 26 H 21 H 23 H Blood Pressure Pulse Oximetry Oxygen Delivery Oxygen Flow Rate 11/21/24 20:30 11/21/24 20:32 11/21/24 20:44 Temperature 98.1 F Pulse Rate 93 92 88 Respiratory Rate 21 H 25 H 16 Blood Pressure 95/68 L 107/88 Pulse Oximetry 96 96 100 Oxygen Delivery Oxygen Flow Rate 11/21/24 21:34 11/21/24 21:35 11/21/24 21:45 Temperature Pulse Rate 90 90 90 Respiratory Rate 19 20 19 Blood Pressure 123/74 115/77 Pulse Oximetry 97 97 97 Oxygen Delivery Oxygen Flow Rate 11/21/24 21:46 11/21/24 22:00 11/21/24 22:01 Temperature Pulse Rate 90 88 86 Respiratory Rate 18 18 19 Blood Pressure 119/76 Pulse Oximetry 97 97 97 Oxygen Delivery Oxygen Flow Rate 11/21/24 22:15 11/21/24 22:16 11/21/24 22:30 Temperature Pulse Rate 85 85 84 Respiratory Rate 14 16 18 Blood Pressure 121/73 117/73 Pulse Oximetry 99 99 97 Oxygen Delivery Oxygen Flow Rate 11/21/24 22:31 11/21/24 22:45 11/21/24 22:46 Temperature Pulse Rate 84 85 87 Respiratory Rate 18 17 17 Blood Pressure 120/75 Pulse Oximetry 97 97 94 Oxygen Delivery Oxygen Flow Rate 11/21/24 22:54 11/21/24 23:00 11/21/24 23:01 Temperature 98.2 F Pulse Rate 88 87 85 Respiratory Rate 14 17 17 Blood Pressure 120/75 122/74 Pulse Oximetry 93 97 95 Oxygen Delivery Oxygen Flow Rate 11/21/24 23:20 11/21/24 23:30 11/21/24 23:31 Temperature Pulse Rate 93 80 79 Respiratory Rate 22 H 15 16 Blood Pressure 127/78 Pulse Oximetry 99 98 98 Oxygen Delivery Oxygen Flow Rate 11/21/24 23:45 11/21/24 23:46 11/21/24 23:58 Temperature Pulse Rate 80 80 84 Respiratory Rate 17 17 16 Blood Pressure 128/85 119/63 Pulse Oximetry 97 96 99 Oxygen Delivery Oxygen Flow Rate 11/22/24 00:46 11/22/24 00:51 11/22/24 01:00 Temperature 97.9 F 97.5 F L Pulse Rate 70 73 75 Respiratory Rate 18 12 18 Blood Pressure 98/58 L 111/67 102/61 Pulse Oximetry 100 98 97 Oxygen Delivery Simple Face Mask Oxygen Flow Rate 8 11/22/24 01:15 11/22/24 01:30 11/22/24 01:55 Temperature 97.5 F L Pulse Rate 76 74 73 Respiratory Rate 14 14 12 Blood Pressure 111/76 119/74 111/67 Pulse Oximetry 96 96 98 Oxygen Delivery Room Air Room Air Oxygen Flow Rate 11/22/24 02:10 11/22/24 02:40 11/22/24 03:04 Temperature 97.2 F L 97.5 F L Pulse Rate 74 73 Respiratory Rate 16 16 Blood Pressure 105/69 103/67 Pulse Oximetry 98 97 Oxygen Delivery Room Air Oxygen Flow Rate 11/22/24 03:40 11/22/24 06:00 11/22/24 09:50 Temperature 98.5 F 98.9 F Pulse Rate 84 85 Respiratory Rate 16 20 Blood Pressure 105/64 104/63 Pulse Oximetry 97 98 Oxygen Delivery Room Air Oxygen Flow Rate Intake/Output Intake/Output: Intake & Output 11/19/24 11/20/24 11/21/24 11/22/24 23:59 23:59 23:59 23:59 Intake Total 3150 1140 Output Total 1050 Balance 3150 90 Meds/Results Medications: Active Medications Generic Name Dose Route Start Last Admin Trade Name Freq PRN Reason Stop Dose Admin Acetaminophen 650 mg 11/21/24 22:38 Acetaminophen 325 Mg Tablet PO Q6H PRN Mild Pain (1-3) or Fever Ceftriaxone Sodium 2 gm in 100 mls @ 200 mls/hr 11/22/24 21:00 Rocephin 2 Gm/Ns 100 Ml IVPB Q24H UMA Sodium Chloride 1,000 mls @ 100 mls/hr 11/21/24 22:45 11/21/24 22:51 Normal Saline Iv IV CONT 100 mls/hr .Q10H UMA Administration Radiology Results: ITS Impressions Chest X-Ray 11/21/24 19:20 IMPRESSION: No focal infiltrate or effusion. Abdomen/Pelvis CT 11/21/24 21:15 IMPRESSION: Significant right-sided hydronephrosis secondary to a 12 mm calculus in the distal right renal pelvis. 12 x 10 mm nodule within the right lower lobe for which dedicated CT examination of the chest is recommended, when the patient is clinically able. Hepatomegaly. Retrograde Pyelogram 11/22/24 07:29 IMPRESSION: 1. Fluoroscopy utilized during right retrograde pyelogram and placement of a right internal ureteral stent which is in expected position. See procedure note for further detail. Abdomen Ultrasound 11/22/24 09:01 IMPRESSION: 1. Diffuse hepatic steatosis with regions of focal hepatic steatosis along the gallbladder fossa and no significant 3 along the marciano hepatis. Renal Ultrasound 11/22/24 09:06 IMPRESSION: 1. Persistent mild asymmetric swelling of the right kidney with decreased now minimal hydronephrosis post interval right internal ureteral stent placement. The previously obstructing stone at the renal pelvis is not identified and may have been extracted. Correlate with procedure note. 2. Normal left kidney with no hydronephrosis. Labs Labs: Laboratory Results - last 24 hr 11/21/24 11/21/24 11/21/24 18:39 19:10 19:34 WBC 21.7 H RBC 4.08 L Hgb 11.3 L Hct 34.0 L MCV 83.3 MCH 27.7 MCHC 33.2 RDW 14.6 H Plt Count 257 MPV 10.0 Immature Gran % (Auto) Not Reportable Neut % (Auto) Not Reportable Lymph % (Auto) Not Reportable [place] % (Auto) Not Reportable Eos % (Auto) Not Reportable Baso % (Auto) Not Reportable Lymph # (Auto) Not Reportable [place] # (Auto) Not Reportable Eos # (Auto) Not Reportable Baso # (Auto) Not Reportable Abs Immat Gran (auto) Not Reportable Absolute Neuts (auto) Not Reportable Absolute Nucleated RBC Not Reportable Total Counted 100 Neutrophils % (Manual) 91 H Band Neutrophils % 3 Lymphocytes % (Manual) 4.0 L Monocytes % (Manual) 2 L Nucleated RBC % Not Reportable Abs Neuts (Manual) 20.39 H Abs Lymphs (Manual) 0.86 L Abs Monocytes (Manual) 0.43 Platelet Estimate Adequate Clumped Platelets Present Schistocytes None seen PT 17.5 H INR 1.4 APTT 33.6 Sodium 132 L Potassium 3.4 Chloride 95 L Carbon Dioxide 24 Anion Gap 13 H BUN 26 H Creatinine 2.04 H Estim Creat Clear Calc 32 Estimated GFR 26 L Glucose 126 H Lactic Acid 1.4 Calcium 8.3 L Magnesium 1.7 Total Bilirubin 2.3 H AST 46 H ALT 63 H Alkaline Phosphatase 183 H Total Creatine Kinase Troponin I < 0.012 Total Protein 7.0 Albumin 3.3 L Procalcitonin 18.0 Urine Color Urine Appearance Urine pH Ur Specific [place] Urine Protein Urine Glucose (UA) Urine Ketones Ur Blood (Man) Urine Nitrate Urine Bilirubin Urine Urobilinogen Leukocyte Esterase Rfl Urine RBC Urine WBC Ur Squamous Epith Cells Urine Bacteria Urine Casts POC Urine HCG, Qual Hepatitis A IgM Ab Hep Bs Antigen Hep B Core IgM Ab Hepatitis C Ab Screen Influenza A (RT-PCR) Negative Influenza B (RT-PCR) Negative RSV (RT-PCR) Negative SARS-CoV-2 RNA (RT-PCR) Negative Group A Strep (PCR) Not detected 11/21/24 11/21/24 11/22/24 20:27 22:50 00:30 WBC RBC Hgb Hct MCV MCH MCHC RDW Plt Count MPV Immature Gran % (Auto) Neut % (Auto) Lymph % (Auto) [place] % (Auto) Eos % (Auto) Baso % (Auto) Lymph # (Auto) [place] # (Auto) Eos # (Auto) Baso # (Auto) Abs Immat Gran (auto) Absolute Neuts (auto) Absolute Nucleated RBC Total Counted Neutrophils % (Manual) Band Neutrophils % Lymphocytes % (Manual) Monocytes % (Manual) Nucleated RBC % Abs Neuts (Manual) Abs Lymphs (Manual) Abs Monocytes (Manual) Platelet Estimate Clumped Platelets Schistocytes PT INR APTT Sodium Potassium Chloride Carbon Dioxide Anion Gap BUN Creatinine Estim Creat Clear Calc Estimated GFR Glucose Lactic Acid Calcium Magnesium Total Bilirubin AST ALT Alkaline Phosphatase Total Creatine Kinase 27 L Troponin I Total Protein Albumin Procalcitonin Urine Color Yellow Urine Appearance Turbid H Urine pH 5.5 Ur Specific [place] 1.006 Urine Protein 1+ H Urine Glucose (UA) Negative Urine Ketones Negative Ur Blood (Man) 2+ H Urine Nitrate Negative Urine Bilirubin Negative Urine Urobilinogen 0.2 Leukocyte Esterase Rfl 3+ H Urine RBC 0-2 Urine WBC >100 H Ur Squamous Epith Cells None seen Urine Bacteria Rare Urine Casts 6-10 POC Urine HCG, Qual Negative Hepatitis A IgM Ab Negative Hep Bs Antigen Negative Hep B Core IgM Ab Negative Hepatitis C Ab Screen Negative Influenza A (RT-PCR) Influenza B (RT-PCR) RSV (RT-PCR) SARS-CoV-2 RNA (RT-PCR) Group A Strep (PCR) 11/22/24 09:51 WBC 14.0 H RBC 3.22 L Hgb 9.1 L Hct 27.4 L MCV 85.1 MCH 28.3 MCHC 33.2 RDW 15.1 H Plt Count 229 MPV 10.0 Immature Gran % (Auto) 0.9 H Neut % (Auto) 87.0 H Lymph % (Auto) 5.4 L [place] % (Auto) 5.8 Eos % (Auto) 0.5 Baso % (Auto) 0.4 Lymph # (Auto) 0.76 L [place] # (Auto) 0.8 H Eos # (Auto) 0.1 Baso # (Auto) 0.1 Abs Immat Gran (auto) 0.12 H Absolute Neuts (auto) 12.1 H Absolute Nucleated RBC 0.000 Total Counted Neutrophils % (Manual) Band Neutrophils % Lymphocytes % (Manual) Monocytes % (Manual) Nucleated RBC % 0.0 Abs Neuts (Manual) Abs Lymphs (Manual) Abs Monocytes (Manual) Platelet Estimate Clumped Platelets Schistocytes PT INR APTT Sodium 138 Potassium 3.4 Chloride 106 Carbon Dioxide 26 Anion Gap 6 BUN 22 H Creatinine 1.19 H Estim Creat Clear Calc 56 Estimated GFR 48 L Glucose 110 Lactic Acid Calcium 7.4 L Magnesium Total Bilirubin AST ALT Alkaline Phosphatase Total Creatine Kinase Troponin I Total Protein Albumin Procalcitonin Urine Color Urine Appearance Urine pH Ur Specific [place] Urine Protein Urine Glucose (UA) Urine Ketones Ur Blood (Man) Urine Nitrate Urine Bilirubin Urine Urobilinogen Leukocyte Esterase Rfl Urine RBC Urine WBC Ur Squamous Epith Cells Urine Bacteria Urine Casts POC Urine HCG, Qual Hepatitis A IgM Ab Hep Bs Antigen Hep B Core IgM Ab Hepatitis C Ab Screen Influenza A (RT-PCR) Influenza B (RT-PCR) RSV (RT-PCR) SARS-CoV-2 RNA (RT-PCR) Group A Strep (PCR) Quality VTE Prophylaxis VTE prophylaxis: mechanical ordered Hospitalist [facility] Advance Care Plan I have confirmed that the patient's Advanced Care Plan is present, code status is documented, or surrogate decision maker is listed in patient medical record.: Yes Medication Reconciliation I have utilized all available resources to obtain, update and review the patients current medications (includes all prescriptions, OTC, herbals, cannabis, and nutritional supplements).: Yes
[2024-11-22] MEDS: ACETAMINOPHEN 325 MG TABLET 650 MG PO (13:12)
[2024-11-22] MEDS: SODIUM CHLORIDE 0.9% IV 1,000 ML 100 ML IV CONT (13:15)
[2024-11-22] MEDS: cefTRIAXone 2 GM/NS 100 ML 2 GM/100 ML BAG IVPB (21:06)
[2024-11-22] MEDS: KETOROLAC 15 MG/ML VIAL (*BKC) IV PUSH (21:48)
[2024-11-23] MEDS: SODIUM CHLORIDE 0.9% IV 1,000 ML 100 ML IV CONT ×3 (01:50→21:46)
[2024-11-23 05:25] LABS: Basophils Percent Auto 0.3 % (0.2-1.2); Eosinophils Absolute Auto 0.1 K/mm3 (0-0.3); Eosinophils Percent Auto 1.4 % (0-4.4); Hematocrit 27.4 % (37.0-47.0); Hemoglobin 8.9 g/dL (12.0-15.0); Immature Granulocyte Absolute 0.11 K/mm3 (0.00-0.031); Immature Granulocyte Percent A 1.1 % (0-0.5); Lymphocytes Absolute Auto 1.07 K/mm3 (0.9-3.2); Lymphocytes Percent Auto 10.5 % (18.3-44.2); Mean Corpuscular HGB Conc 32.5 g/dl (32-36); Mean Corpuscular Hemoglobin 27.6 pg (26-34); Mean Corpuscular Volume 85.1 fl (80-100); Mean Platelet Volume 9.7 fl (7.4-10.4); Monocytes Absolute Auto 0.9 K/mm3 (0.1-0.6); Monocytes Percent Auto 8.4 % (2.6-8.5); Neutrophils Percent Auto 78.3 % (45.5-73.1); Platelet Count Result 269 k/mm3 (150-375); Red Blood Count 3.22 M/mm3 (4.2-5.4); Red Cell Distribution Width 15.2 % (11.5-14.5); White Blood Count 10.2 K/mm3 (4.5-10.0)
[2024-11-23 05:32] VITALS: BP 134/77; PULSE 83; RESP 16; TEMP 37.1; O2SAT 99
[2024-11-23 05:40] LABS: Anion Gap 7 mmol/L (4-12); Blood Urea Nitrogen 17 mg/dL (7-17); Calcium 7.4 mg/dL (8.4-10.2); Carbon Dioxide 24 mmol/L (22-30); Chloride 106 mmol/L (98-107); Estimated CRCL calculation 67 ml/min; Estimated Glomerular Filt Rate > 60; Glucose 90 mg/dL (65-110); Potassium 3.1 mmol/L (3.4-5.0); Sodium 137 mmol/L (137-145)
[2024-11-23 08:00] VITALS: O2SAT 99
[2024-11-23] MEDS: POTASSIUM CHLORIDE 20 MEQ ER TABLET 40 MEQ PO (09:00)
--- NOTE | 2024-11-23 09:39 | P.PNIM_ITS ---
Progress Note: A&P Assessment and Plan (1) Sepsis: Code(s): A41.9 - Sepsis, unspecified organism Status: Acute Assessment and Plan: -sepsis criteria met on admission: Fevers, tachycardia, tachypnea, leukocytos is, UA positive for possible UTI. -blood and urine cultures groing E.Coli. -Started on empiric broad-spectrum IV antibiotics. -Continue to follow cultures. (2) Urinary tract infection: Code(s): N39.0 - Urinary tract infection, site not specified Status: Acute Assessment and Plan: -UA positive for possible UTI on admission. -blood and urine cultures growing E.Coli. -patient currently on ceftriaxone. -Continue to follow cultures. (3) Stone in renal pelvis: Code(s): N20.0 - Calculus of kidney Status: Acute Assessment and Plan: CT Abd/Pelvis: Significant right-sided hydronephrosis secondary to a 12 mm calculus in the distal right renal pelvis. 12 x 10 mm nodule within the right lower lobe for which dedicated CT examination of the chest is recommended, when the patient is clinically able. Hepatomegaly. -Seen by Urology. -s/p cystoscopy and right ureteral stent placement. Repeat US Renal post procedure: 1. Persistent mild asymmetric swelling of the right kidney with decreased now minimal hydronephrosis post interval right internal ureteral stent placement. The previously obstructing stone at the renal pelvis is not identified and may have been extracted. Correlate with procedure note. 2. Normal left kidney with no hydronephrosis. -follow-up outpatient with urologist for further management. (4) Acute kidney injury: Code(s): N17.9 - Acute kidney failure, unspecified Status: Acute Assessment and Plan: -likely related to hydronephrosis secondary to renal stone + nausea and vomiting. -improving s/p stent placement + aggressive IV fluid hydration. -Well improving and almost resolved; Cr 2.04>>1.19>>0.97. -Anticipating CT chest with contrast and we'll continue IVF hydration. -continue to monitor closely with IVF hydration. -avoid nephrotoxins. (5) Hydronephrosis of right kidney: Code(s): N13.30 - Unspecified hydronephrosis Status: Acute Assessment and Plan: US Renal post-cystoscoly: Persistent mild asymmetric swelling of the right kidney with decreased now minimal hydronephrosis post interval right internal ureteral stent placement. The previously obstructing stone at the renal pelvis is not identified and may have been extracted. -Resolving post ureteral stent placement. - Outpatient f/u with urologist. (6) Right lower lobe pulmonary nodule: Code(s): R91.1 - Solitary pulmonary nodule Status: Acute Assessment and Plan: CT Abd/pelvis: 12 x 10 mm nodule within the right lower lobe for which dedicated CT examination of the chest is recommended, when the patient is clinically able. -CT chest with contrast ordered with pt's improved renal function. -further management pending CT chest results. (7) Elevated LFTs: Code(s): R79.89 - Other specified abnormal findings of blood chemistry Status: Acute Assessment and Plan: -patient noted with few regions of relatively decreased echogenicity and hypoechoic and high attenuation. -acute hepatitis virus PCR negative. -possibly related to infected. -will monitor trend and consider GI consultation.. Time Spent With Patient Time with patient: 15 - 25 minutes Subjective Date/time seen: 11/23/24 09:39 Patient states she feels all right and has no pain or other distress with symptoms. Interval history: Patient calm on bedrest and looks to be in no acute distress. Review of Systems Review of Systems: All systems reviewed & are unremarkable except as noted in HPI and below Exam Narrative: HEENT: Atraumatic, PERRL, EOMI, moist mucosa. Neck: Supple. Lungs: Clear bilaterally. Heart: RRR, no murmurs. Abdomen: Soft, nontender, obese, positive bowel sounds on all quadrants. Skin: Warm and dry with no lesions. Neuro: Well oriented, no focal neuro deficit noted. Psych:, calm and cooperative. Objective Data Vital Signs Vital Signs: Vital Signs - 24 hr 11/22/24 09:50 11/22/24 14:00 11/22/24 19:33 Temperature 98.5 F 98.8 F Pulse Rate 80 84 Respiratory Rate 18 16 Blood Pressure 120/77 142/82 H Pulse Oximetry 98 98 Oxygen Delivery Room Air 11/22/24 20:00 11/23/24 05:32 11/23/24 08:00 Temperature 98.8 F Pulse Rate 83 Respiratory Rate 16 Blood Pressure 134/77 Pulse Oximetry 99 99 Oxygen Delivery Room Air Room Air Intake/Output Intake/Output: Intake & Output 11/20/24 11/21/24 11/22/24 11/23/24 23:59 23:59 23:59 23:59 Intake Total 3150 2780 1300 Output Total 2750 1200 Balance 3150 30 100 Meds/Results Medications: Active Medications Generic Name Dose Route Start Last Admin Trade Name Freq PRN Reason Stop Dose Admin Acetaminophen 650 mg 11/21/24 22:38 11/22/24 13:12 Acetaminophen 325 Mg Tablet PO 650 mg Q6H PRN Administration Mild Pain (1-3) or Fever Ceftriaxone Sodium 2 gm in 100 mls @ 200 mls/hr 11/22/24 21:00 11/22/24 21:36 Rocephin 2 Gm/Ns 100 Ml IVPB Infused Q24H UMA Infusion Sodium Chloride 1,000 mls @ 100 mls/hr 11/21/24 22:45 11/23/24 01:50 Normal Saline Iv IV CONT 100 mls/hr .Q10H UMA Administration Ketorolac Tromethamine 15 mg 11/22/24 21:33 11/22/24 21:48 Ketorolac 15 Mg/Ml Vial (*Bkc) IV PUSH 15 mg Q6H PRN Administration Pain Rated 4-6 Radiology Results: ITS Impressions Chest X-Ray 11/21/24 19:20 IMPRESSION: No focal infiltrate or effusion. Abdomen/Pelvis CT 11/21/24 21:15 IMPRESSION: Significant right-sided hydronephrosis secondary to a 12 mm calculus in the distal right renal pelvis. 12 x 10 mm nodule within the right lower lobe for which dedicated CT examination of the chest is recommended, when the patient is clinically able. Hepatomegaly. Retrograde Pyelogram 11/22/24 07:29 IMPRESSION: 1. Fluoroscopy utilized during right retrograde pyelogram and placement of a right internal ureteral stent which is in expected position. See procedure note for further detail. Abdomen Ultrasound 11/22/24 09:01 IMPRESSION: 1. Diffuse hepatic steatosis with regions of focal hepatic steatosis along the gallbladder fossa and no significant 3 along the marciano hepatis. Renal Ultrasound 11/22/24 09:06 IMPRESSION: 1. Persistent mild asymmetric swelling of the right kidney with decreased now minimal hydronephrosis post interval right internal ureteral stent placement. The previously obstructing stone at the renal pelvis is not identified and may have been extracted. Correlate with procedure note. 2. Normal left kidney with no hydronephrosis. Labs Labs: Laboratory Results - last 24 hr 11/22/24 11/23/24 09:51 05:18 WBC 14.0 H 10.2 H RBC 3.22 L 3.22 L Hgb 9.1 L 8.9 L Hct 27.4 L 27.4 L MCV 85.1 85.1 MCH 28.3 27.6 MCHC 33.2 32.5 RDW 15.1 H 15.2 H Plt Count 229 269 MPV 10.0 9.7 Immature Gran % (Auto) 0.9 H 1.1 H Neut % (Auto) 87.0 H 78.3 H Lymph % (Auto) 5.4 L 10.5 L [place] % (Auto) 5.8 8.4 Eos % (Auto) 0.5 1.4 Baso % (Auto) 0.4 0.3 Lymph # (Auto) 0.76 L 1.07 [place] # (Auto) 0.8 H 0.9 H Eos # (Auto) 0.1 0.1 Baso # (Auto) 0.1 0.0 Abs Immat Gran (auto) 0.12 H 0.11 H Absolute Neuts (auto) 12.1 H 8.0 H Absolute Nucleated RBC 0.000 0.000 Nucleated RBC % 0.0 0.0 Sodium 138 137 Potassium 3.4 3.1 L Chloride 106 106 Carbon Dioxide 26 24 Anion Gap 6 7 BUN 22 H 17 Creatinine 1.19 H 0.97 Estim Creat Clear Calc 56 67 Estimated GFR 48 L > 60 Glucose 110 90 Calcium 7.4 L 7.4 L Quality VTE Prophylaxis VTE prophylaxis: mechanical ordered Hospitalist [facility] Advance Care Plan I have confirmed that the patient's Advanced Care Plan is present, code status is documented, or surrogate decision maker is listed in patient medical record.: Yes Medication Reconciliation I have utilized all available resources to obtain, update and review the patients current medications (includes all prescriptions, OTC, herbals, cannabis, and nutritional supplements).: Yes
--- NOTE | 2024-11-23 09:56 | P.PNUR_ITS ---
Progress Note: A&P Assessment and Plan (1) UTI (urinary tract infection): Code(s): N39.0 - Urinary tract infection, site not specified Status: Acute Assessment and Plan: treating Ecoli, source of sepsis (2) Acute kidney injury: Code(s): N17.9 - Acute kidney failure, unspecified Status: Acute Assessment and Plan: stent and following Cr and UO (3) Stone in renal pelvis: Code(s): N20.0 - Calculus of kidney Status: Acute Assessment and Plan: Treat with ESWL after sepsis and infection treated (4) Hydronephrosis of right kidney: Code(s): N13.30 - Unspecified hydronephrosis Status: Acute Assessment and Plan: stent and resolution on JAIRO Subjective Subjective Date/Time Seen: 11/23/24 09:56 Interval history: Placed stent and treating sepsis cult with Ecoli stone in renal pelvis WBC improving JAIRO noteds and resolved hydro Review of Systems Review of Systems: All systems reviewed & are unremarkable except as noted in HPI and below Constitutional: Constitutional: Reports as per HPI Exam Const: General: healthy appearing and no acute distress : General: Yes bladder normal to palpation, Yes CVA tenderness and Yes no CVA tenderness Objective Data Vital Signs Vital Signs: Vital Signs - 24 hr 11/22/24 14:00 11/22/24 19:33 11/22/24 20:00 Temperature 36.9 C 37.1 C Pulse Rate 80 84 Respiratory Rate 18 16 Blood Pressure 120/77 142/82 H Pulse Oximetry 98 98 Oxygen Delivery Room Air 11/23/24 05:32 11/23/24 08:00 Temperature 37.1 C Pulse Rate 83 Respiratory Rate 16 Blood Pressure 134/77 Pulse Oximetry 99 99 Oxygen Delivery Room Air Intake/Output Intake/Output: Intake & Output 11/20/24 11/21/24 11/22/24 11/23/24 23:59 23:59 23:59 23:59 Intake Total 3150 2780 1540 Output Total 2750 1200 Balance 3150 30 340 Meds/Results Medications: Active Medications Generic Name Dose Route Start Last Admin Trade Name Freq PRN Reason Stop Dose Admin Acetaminophen 650 mg 11/21/24 22:38 11/22/24 13:12 Acetaminophen 325 Mg Tablet PO 650 mg Q6H PRN Administration Mild Pain (1-3) or Fever Ceftriaxone Sodium 2 gm in 100 mls @ 200 mls/hr 11/22/24 21:00 11/22/24 21:36 Rocephin 2 Gm/Ns 100 Ml IVPB Infused Q24H UMA Infusion Sodium Chloride 1,000 mls @ 100 mls/hr 11/21/24 22:45 11/23/24 01:50 Normal Saline Iv IV CONT 100 mls/hr .Q10H UMA Administration Ketorolac Tromethamine 15 mg 11/22/24 21:33 11/22/24 21:48 Ketorolac 15 Mg/Ml Vial (*Bkc) IV PUSH 15 mg Q6H PRN Administration Pain Rated 4-6 Radiology Results: ITS Impressions Chest X-Ray 11/21/24 19:20 IMPRESSION: No focal infiltrate or effusion. Abdomen/Pelvis CT 11/21/24 21:15 IMPRESSION: Significant right-sided hydronephrosis secondary to a 12 mm calculus in the distal right renal pelvis. 12 x 10 mm nodule within the right lower lobe for which dedicated CT examination of the chest is recommended, when the patient is clinically able. Hepatomegaly. Retrograde Pyelogram 11/22/24 07:29 IMPRESSION: 1. Fluoroscopy utilized during right retrograde pyelogram and placement of a right internal ureteral stent which is in expected position. See procedure note for further detail. Abdomen Ultrasound 11/22/24 09:01 IMPRESSION: 1. Diffuse hepatic steatosis with regions of focal hepatic steatosis along the gallbladder fossa and no significant 3 along the marciano hepatis. Renal Ultrasound 11/22/24 09:06 IMPRESSION: 1. Persistent mild asymmetric swelling of the right kidney with decreased now minimal hydronephrosis post interval right internal ureteral stent placement. The previously obstructing stone at the renal pelvis is not identified and may have been extracted. Correlate with procedure note. 2. Normal left kidney with no hydronephrosis. Labs Labs: Laboratory Results - last 24 hr 11/22/24 11/23/24 09:51 05:18 WBC 14.0 H 10.2 H RBC 3.22 L 3.22 L Hgb 9.1 L 8.9 L Hct 27.4 L 27.4 L MCV 85.1 85.1 MCH 28.3 27.6 MCHC 33.2 32.5 RDW 15.1 H 15.2 H Plt Count 229 269 MPV 10.0 9.7 Immature Gran % (Auto) 0.9 H 1.1 H Neut % (Auto) 87.0 H 78.3 H Lymph % (Auto) 5.4 L 10.5 L Sutter % (Auto) 5.8 8.4 Eos % (Auto) 0.5 1.4 Baso % (Auto) 0.4 0.3 Lymph # (Auto) 0.76 L 1.07 Sutter # (Auto) 0.8 H 0.9 H Eos # (Auto) 0.1 0.1 Baso # (Auto) 0.1 0.0 Abs Immat Gran (auto) 0.12 H 0.11 H Absolute Neuts (auto) 12.1 H 8.0 H Absolute Nucleated RBC 0.000 0.000 Nucleated RBC % 0.0 0.0 Sodium 138 137 Potassium 3.4 3.1 L Chloride 106 106 Carbon Dioxide 26 24 Anion Gap 6 7 BUN 22 H 17 Creatinine 1.19 H 0.97 Estim Creat Clear Calc 56 67 Estimated GFR 48 L > 60 Glucose 110 90 Calcium 7.4 L 7.4 L Imaging Attestation: I personally reviewed and interpreted this imaging study as follows:
[2024-11-23 13:59] VITALS: BP 151/90; PULSE 80; RESP 16; TEMP 36.7; O2SAT 99
[2024-11-23] MEDS: cefTRIAXone 2 GM/NS 100 ML 2 GM/100 ML BAG IVPB (20:23)
[2024-11-23 21:17] VITALS: BP 155/90; PULSE 82; RESP 18; TEMP 37.3; O2SAT 98
[2024-11-24 05:30] LABS: Basophils Percent Auto 0.6 % (0.2-1.2); Eosinophils Absolute Auto 0.1 K/mm3 (0-0.3); Hematocrit 29.5 % (37.0-47.0); Hemoglobin 9.5 g/dL (12.0-15.0); Immature Granulocyte Absolute 0.05 K/mm3 (0.00-0.031); Immature Granulocyte Percent A 0.7 % (0-0.5); Lymphocytes Absolute Auto 1.35 K/mm3 (0.9-3.2); Lymphocytes Percent Auto 18.9 % (18.3-44.2); Mean Corpuscular HGB Conc 32.2 g/dl (32-36); Mean Corpuscular Hemoglobin 27.5 pg (26-34); Mean Corpuscular Volume 85.5 fl (80-100); Mean Platelet Volume 9.9 fl (7.4-10.4); Monocytes Absolute Auto 0.6 K/mm3 (0.1-0.6); Monocytes Percent Auto 8.8 % (2.6-8.5); Platelet Count Result 330 k/mm3 (150-375); Red Blood Count 3.45 M/mm3 (4.2-5.4); Red Cell Distribution Width 15.2 % (11.5-14.5); White Blood Count 7.2 K/mm3 (4.5-10.0)
[2024-11-24 05:42] LABS: Alanine Aminotransferase 50 U/L (6-35); Alkaline Phosphatase 106 U/L (38-126); Anion Gap 8 mmol/L (4-12); Aspartate Amino Transferase 34 U/L (14-36); Bilirubin,Total 0.7 mg/dL (0.2-1.3); Blood Urea Nitrogen 9 mg/dL (7-17); Calcium 7.9 mg/dL (8.4-10.2); Carbon Dioxide 26 mmol/L (22-30); Chloride 104 mmol/L (98-107); Estimated CRCL calculation 78 ml/min; Estimated Glomerular Filt Rate > 60; Glucose 93 mg/dL (65-110); Potassium 3.1 mmol/L (3.4-5.0); Sodium 138 mmol/L (137-145)
[2024-11-24 05:47] VITALS: BP 153/90; PULSE 80; RESP 16; TEMP 36.6; O2SAT 98
--- NOTE | 2024-11-24 06:50 | P.PNUR_ITS ---
Progress Note: A&P Assessment and Plan (1) Hydronephrosis of right kidney: Code(s): N13.30 - Unspecified hydronephrosis Status: Acute (2) Urinary tract infection: Code(s): N39.0 - Urinary tract infection, site not specified Status: Acute (3) Stone in renal pelvis: Code(s): N20.0 - Calculus of kidney Status: Acute Plan Clinically improving. Hopefully can be transitioned over to p.o. pain medications. Should be discharged home on 2 weeks of p.o. antibiotics. We will call to arrange definitive stone management. Subjective Subjective Date/Time Seen: 11/24/24 06:50 Review of Systems Review of Systems: Stent with minimal discomfort. Urine culture and blood culture positive. Looks to be multidrug sensitive E coli Exam Narrative: She is in no acute distress. She is ambulating about the room. Objective Data Vital Signs Vital Signs: Vital Signs - 24 hr 11/23/24 08:00 11/23/24 13:59 11/23/24 20:53 Temperature 98.1 F Pulse Rate 80 Respiratory Rate 16 Blood Pressure 151/90 H Pulse Oximetry 99 99 Oxygen Delivery Room Air Room Air 11/23/24 21:17 11/24/24 05:47 Temperature 99.1 F 98 F Pulse Rate 82 80 Respiratory Rate 18 16 Blood Pressure 155/90 H 153/90 H Pulse Oximetry 98 98 Oxygen Delivery Intake/Output Intake/Output: Intake & Output 11/21/24 11/22/24 11/23/24 11/24/24 23:59 23:59 23:59 23:59 Intake Total 3150 2780 5070 650 Output Total 2750 1200 1200 Balance 3150 30 3870 -550 Meds/Results Medications: Active Medications Generic Name Dose Route Start Last Admin Trade Name Freq PRN Reason Stop Dose Admin Acetaminophen 650 mg 11/21/24 22:38 11/22/24 13:12 Acetaminophen 325 Mg Tablet PO 650 mg Q6H PRN Administration Mild Pain (1-3) or Fever Ceftriaxone Sodium 2 gm in 100 mls @ 200 mls/hr 11/22/24 21:00 11/23/24 20:53 Rocephin 2 Gm/Ns 100 Ml IVPB Infused Q24H UMA Infusion Sodium Chloride 1,000 mls @ 100 mls/hr 11/21/24 22:45 11/23/24 21:46 Normal Saline Iv IV CONT 100 mls/hr .Q10H UMA Administration Ketorolac Tromethamine 15 mg 11/22/24 21:33 11/22/24 21:48 Ketorolac 15 Mg/Ml Vial (*Bkc) IV PUSH 15 mg Q6H PRN Administration Pain Rated 4-6 Radiology Results: ITS Impressions Chest X-Ray 11/21/24 19:20 IMPRESSION: No focal infiltrate or effusion. Abdomen/Pelvis CT 11/21/24 21:15 IMPRESSION: Significant right-sided hydronephrosis secondary to a 12 mm calculus in the distal right renal pelvis. 12 x 10 mm nodule within the right lower lobe for which dedicated CT examination of the chest is recommended, when the patient is clinically able. Hepatomegaly. Retrograde Pyelogram 11/22/24 07:29 IMPRESSION: 1. Fluoroscopy utilized during right retrograde pyelogram and placement of a right internal ureteral stent which is in expected position. See procedure note for further detail. Abdomen Ultrasound 11/22/24 09:01 IMPRESSION: 1. Diffuse hepatic steatosis with regions of focal hepatic steatosis along the gallbladder fossa and no significant 3 along the marciano hepatis. Renal Ultrasound 11/22/24 09:06 IMPRESSION: 1. Persistent mild asymmetric swelling of the right kidney with decreased now minimal hydronephrosis post interval right internal ureteral stent placement. The previously obstructing stone at the renal pelvis is not identified and may have been extracted. Correlate with procedure note. 2. Normal left kidney with no hydronephrosis. Labs Labs: Laboratory Results - last 24 hr 11/24/24 05:14 WBC 7.2 RBC 3.45 L Hgb 9.5 L Hct 29.5 L MCV 85.5 MCH 27.5 MCHC 32.2 RDW 15.2 H Plt Count 330 MPV 9.9 Immature Gran % (Auto) 0.7 H Neut % (Auto) 69.0 Lymph % (Auto) 18.9 Mercer % (Auto) 8.8 H Eos % (Auto) 2.0 Baso % (Auto) 0.6 Lymph # (Auto) 1.35 Mercer # (Auto) 0.6 Eos # (Auto) 0.1 Baso # (Auto) 0.0 Abs Immat Gran (auto) 0.05 H Absolute Neuts (auto) 5.0 Absolute Nucleated RBC 0.000 Nucleated RBC % 0.0 Sodium 138 Potassium 3.1 L Chloride 104 Carbon Dioxide 26 Anion Gap 8 BUN 9 D Creatinine 0.83 Estim Creat Clear Calc 78 Estimated GFR > 60 Glucose 93 Calcium 7.9 L Total Bilirubin 0.7 AST 34 ALT 50 H Alkaline Phosphatase 106 Total Protein 7.0 Albumin 3.0 L
--- NOTE | 2024-11-24 13:38 | PM.DS ---
DS: Admitting Diagnosis Discharge Date 11/24/24 Admitting Diagnosis Ureteral stone. DS: Discharge Diagnosis Discharge Diagnosis (1) Sepsis: Code(s): A41.9 - Sepsis, unspecified organism Status: Acute Assessment and Plan: Acute (2) Urinary tract infection: Code(s): N39.0 - Urinary tract infection, site not specified Status: Acute Assessment and Plan: Acute (3) Stone in renal pelvis: Code(s): N20.0 - Calculus of kidney Status: Acute Assessment and Plan: Acute (4) Acute kidney injury: Code(s): N17.9 - Acute kidney failure, unspecified Status: Acute Assessment and Plan: Acute. (5) Hydronephrosis of right kidney: Code(s): N13.30 - Unspecified hydronephrosis Status: Acute Assessment and Plan: Acute (6) Right lower lobe pulmonary nodule: Code(s): R91.1 - Solitary pulmonary nodule Status: Acute Assessment and Plan: Acute (7) Elevated LFTs: Code(s): R79.89 - Other specified abnormal findings of blood chemistry Status: Acute Assessment and Plan: Acute. Plan Discharge home. DS: Summary Hospital Course Reason for hospitalization: UTI with Sepsis Hospital Course: Patient presented to emergency room with reports of fevers, nausea and vomiting associated with severe right flank sharp pain. CT abdomen pelvis done in the ED shows significant right-sided hydronephrosis secondary to a 12 mm calculus in the distal right renal pelvis. The CT also showed that often 12 x 10 mm nodule within the right lower lobe for which a dedicated CT of the chest was recommended. The patient met sepsis criteria on admission with fevers, tachycardia, tachypnea, leukocytosis, with UA positive for possible UTI. Blood and urine cultures were collected and patient given fluid bolus then started on broad-spectrum IV antibiotics. The urologist was consulted for recommendation and recommended a right ureteral stent placement that was done successfully. Ultrasound done postprocedure showed mild asymmetric swelling of the right kidney with decreasing minimal hydronephrosis post ureteral stent placement. The US also showed mild asymmetric swelling of the right kidney with minimal hydronephrosis post internal ureteral stent placement. The US also showed that the previously obstructing stone at the renal pelvis had been extracted. She had NYASIA likely secondary to renal stone hydronephrosis but this resolved with aggressive IVF hydration with the kidney function returning to baseline prior to her discharge. Patient's blood and urine cultures came back positive for E coli that was covered by ceftriaxone, and the patient will be discharged on high-dose Augmentin to complete a 14 day antibiotic treatment. She will follow-up with the urologist outpatient for further renal stone management. CT chest with contrast was done to follow-up on the lung nodule and it showed 3 pulmonary nodules; 5 mm pleural-based nodule present in the superior segment right lower lobe, 12 mm right lower lobe pulmonary nodule and 9 mm lingular nodule. Short-term follow-up CT in 1-3 months, versus PET/CT or attempted tissue sampling was recommended and patient informed to follow-up with the PCP for set up of the follow-up CT or PET scan, whichever she prefers. Patient's right flank pain has resolved and she has been tolerating meals with no is status post symptoms. She has been cleared for discharge by the urologist who will follow-up with her as an outpatient. No further episodes and patient the patient's leukocytosis has resolved. Patient had episodes of hypokalemia that corrected prior to discharge with all her labs fairly unremarkable prior to discharge. Patient is medically stable for discharge home with no acute distress noted or reported prior to discharge. Status at Discharge Functional status at discharge: independent ambulation Overall status at discharge: patient is progressing back to baseline Time Spent with Patient Time attestation: Total time spent providing and/or coordinating discharge services: Time spent: Greater than 30 minutes Exam Narrative: HEENT: Atraumatic, PERRL, EOMI, moist mucosa. Neck: Supple. Lungs: Clear bilaterally. Heart: RRR, no murmurs. Abdomen: Soft, nontender, obese, positive bowel sounds on all quadrants. Skin: Warm and dry with no lesions. Neuro: Well oriented, no focal neuro deficit noted. Psych:, calm and cooperative. DS: Data Data Completed and Pending Labs on day of discharge: Labs from last 24 hours 11/24/24 05:14 WBC 7.2 RBC 3.45 L Hgb 9.5 L Hct 29.5 L MCV 85.5 MCH 27.5 MCHC 32.2 RDW 15.2 H Plt Count 330 MPV 9.9 Immature Gran % (Auto) 0.7 H Neut % (Auto) 69.0 Lymph % (Auto) 18.9 Caroline % (Auto) 8.8 H Eos % (Auto) 2.0 Baso % (Auto) 0.6 Lymph # (Auto) 1.35 Caroline # (Auto) 0.6 Eos # (Auto) 0.1 Baso # (Auto) 0.0 Abs Immat Gran (auto) 0.05 H Absolute Neuts (auto) 5.0 Absolute Nucleated RBC 0.000 Nucleated RBC % 0.0 Sodium 138 Potassium 3.1 L Chloride 104 Carbon Dioxide 26 Anion Gap 8 BUN 9 D Creatinine 0.83 Estim Creat Clear Calc 78 Estimated GFR > 60 Glucose 93 Calcium 7.9 L Total Bilirubin 0.7 AST 34 ALT 50 H Alkaline Phosphatase 106 Total Protein 7.0 Albumin 3.0 L Discharge Plan Discharge Attending physician on discharge: Serge Tolbert Consulting providers: Maurizio Wayne Discharging Clinician: Juhi Beebe Anticipated Discharge Date/Time: 11/24/24 13:46 Patient Disposition: Home, Self-Care Activity: as tolerated Diet: regular Patient Instructions: Antibiotic Form Patient Language: Bruneian Stand Alone Forms: General Discharge Information Follow-up/Referrals: Maurizio Wayne MD [Physician] - 2 Weeks Ford Ivy MD [Primary Care Provider] - 1 Week Discharge Medications: New amoxicillin-pot clavulanate 875-125 mg tablet 1 tablet PO Q8H Qty: 36 0RF Continued No Home Medications Date of admission: 11/23/24 12:10 Primary Care Provider: Ford Ivy Admitting Provider: Serge Tolbert Attending physician on admission: Serge Tolbert Condition: Stable Quality If No VTE Prophylaxis Answer both mechanical and pharmacologic: Reason no mechanical VTE proph: low risk/not indicated Reason no pharmacologic proph: low risk/not indicated Hospitalist MIPS Heart Failure (Exclusion) Patient has history of Heart Transplant or Left Ventricular Assistive Device?: No IF YES, STOP HERE Heart Failure (Qualifier) Patient has current or prior documentation of LVEF less than or equal to 40%, or mod/servere depressed LVSF?: No IF NO, STOP HERE
[2024-11-24 14:00] VITALS: BP 151/99; PULSE 80; RESP 12; TEMP 36.4; O2SAT 98
== END 2024-11-24 15:20 | disposition home or self-care (01) | DRG 854 ==
LOC: ANHED 11-22 00:04 → ANH2MED 11-22 01:56
PROVIDERS: Emergency Medicine; Physician Assistant; Urology; Admitting Provider Internal Medicine; Emergency Provider Emergency Medicine; PCP Family Medicine; Visit Provider Nurse Practitioner Adult Health
PROC: 0T768DZ Dilation of Right Ureter with Intraluminal Device, Via Natural or Artificial Opening Endoscopic (ICD-10-PCS; CPT 52352; principal; 2024-11-22)
DX: A41.51 Sepsis due to Escherichia coli [E. coli] (principal); N13.30 Unspecified hydronephrosis; N39.0 Urinary tract infection, site not specified; N17.9 Acute kidney failure, unspecified; B96.20 Unspecified Escherichia coli [E. coli] as the cause of diseases classified elsewhere; E87.6 Hypokalemia; N20.0 Calculus of kidney; R79.89 Other specified abnormal findings of blood chemistry; R91.8 Other nonspecific abnormal finding of lung field; Z20.822 Contact with and (suspected) exposure to COVID-19
CPT/HCPCS: 36415; 71045; 71260; 74018; 74160; 74176; 74420; 76705; 76775; 80048; 80053; 80074; 81001; 82550; 83605; 83735; 84145; 84484; 85025; 85610; 85730; 87040; 87086; 87186; 87637; 87651; 93005; 96361; 96365; 96367; 96375; 99285; A9270; C1758; C1769; C2617; G0378; J0330; J0696; J1100; J1885; J2003; J2405; J2704; J3010; J3475; J7030; J7120; Q9966; Q9967

== ENCOUNTER 2024-12-10 07:54 | Outpatient (CLI) | payer BC, SELFPAY ==
[2024-12-10 08:54] LABS: Add Urine Microscopic? YES; Appearance Urine Clear (Clear); Bacteria Urine None Seen /hpf; Bilirubin Urine Negative (Negative); Blood Urine Negative (Negative); Color Urine Yellow (Yellow); Glucose Urine UA Negative (Negative); Ketones Urine Negative (Negative); Leukocyte Esterase Ur 2+ LEU/UL (Negative); Nitrate Urine Negative (Negative); Non Pathogenic Casts 0-2; Protein Urine Negative (Negative); RBC Urine 0-2 /hpf (0-2); Specific Grav Ur 1.003 (1.001-1.035); Squamous Epithelial Cell Urine None Seen /hpf (Few); Urobilinogen Urine 0.2 mg/dL (<2.0); pH Urine 6.5 (5.0-9.0)
[2024-12-10 09:04] LABS: INR 1.1; Prothrombin Time 14.8 Seconds (11.1-14.7)
== END 2024-12-10 07:55 | disposition home or self-care (01) ==
LOC: ANHSURGERY 07:58
PROVIDERS: PCP Family Medicine; Visit Provider Urology
DX: Z01.812 Encounter for preprocedural laboratory examination (principal); N20.0 Calculus of kidney
CPT/HCPCS: 36415; 81001; 85610; 85730; 87086

== ENCOUNTER 2024-12-11 00:30 | Day surgery (SDC) | payer BC, SELFPAY ==
--- NOTE | 2024-12-08 16:52 | PC.NURSE ---
Report to the Outpatient Waiting Room, entrance under the green pavilion located off [facility], at time ____11:00am___ on date __4-09-1424 . Planned Procedure Time: __1:00pm .? Time changes happen often and if your time is changed the preop area will call you the afternoon before. - You and your visitor will be asked to self-screen and do not enter if you have any COVID symptoms. Please call surgeon if you need to reschedule. - A mask is optional within the hospital at this time. Patients may have clear liquids (water, carbonated beverages, clear teas, apple juice) until 3 hours prior to surgery with a maximum of 20 ounces. STOP AT 10:00am - No food from midnight until time of surgery and no smoking, or chewing tobacco (or any form of nicotine). No chewing gum, candy or mints. Take only the following medications with a SIP of water on the morning of surgery: n/a Please no make-up, nail maltese, hairspray, perfume, deodorant, or body powder the day of surgery.? No jewelry (including any body piercings) or valuables the day of surgery, leave them at home.? Please take a shower or bath the night before, or the morning of, surgery with an antibacterial soap.? Wear comfortable, loose fitting clothing.? - Jewelry must be removed prior to entering the operating room.? Rings and piercings that are not removed may be cut off. - The hospital will not accept responsibility for valuables.? - Please leave all valuables, including medications, at home the day of surgery. If you are going home after surgery, a licensed funeral car driver must drive you home.? - NO public transportation without another adult if you receive anesthesia. - We recommend that an adult stay with you for 24 hours following discharge. - We also recommend that you do not drive, make important decision, drink alcoholic beverages, or take any drugs that were not prescribed by your health care provider for at least 24 hours after your discharge time. Follow any additional instructions given to you from your surgeon. Telephone instructions given to __patient (Francoise) and asked if any additional questions and then verbalized understanding. Patient advised to call surgeon office or pre surgery nurse liaison [phone] if any additional questions.
[2024-12-08 17:02] VITALS: BMI 32.1
--- NOTE | 2024-12-09 07:09 | P.HP_ITS ---
History of Present Illness History of Present Illness Consent: Risks, benefits, and alternatives have been discussed and questions answered. Patient agrees to proceed with procedure. Chief complaint: Rt Renal Stone Narrative: Francoise Schwartz is a 49 year old female admitted in late October over a weekend with a large obstructing right UPJ calculus. She underwent ureteral stent placement and now presents for definitive management with ESWL. She is aware of the risks including, but not limited to, adverse cardiopulmonary events, perinephric hematoma hematuria and need for additional procedures Review of Systems Review of Systems: All systems reviewed & are unremarkable except as noted in HPI and below PMFSH Past Medical History Medical History Leukocytosis Sepsis Urinary tract infection Social History Social History Smoking status: Never smoker Second hand tobacco smoke exposure: No Alcohol intake: never Substance use: never Substance use type: does not use Do You Feel Safe in your Home?: Yes Lack of Transportation: No Lack of Food: Never True Current Housing: I Have Housing Concerned About Future Housing: No Difficulty Paying Gas/Electric Bills: No Difficulty Paying for Meds: No Currently Unemployed: No Education: Master's Degree or Higher Difficulty w/ Childcare or Family Care: No Living arrangements: with family Spiritual care concerns: No Meds Home Medications and Allergies Allergies Allergy/AdvReac Type Severity Reaction Status Date / Time No Known Allergies Allergy Mild Verified 12/08/24 17:00 Exam Const: General: no acute distress Resp: Effort & Inspection: normal respiratory effort GI: Inspection: non-distended GI Palp: No abdominal tenderness and No Guarding due to palpation present (GI) Auscultation: normal bowel sounds Assessment and Plan Assessment and plan (1) Stone in renal pelvis: Code(s): N20.0 - Calculus of kidney Status: Acute Assessment and Plan: * right ESWL
[2024-12-11] VITALS (7 sets, daily range): BP systolic 119–157; BP diastolic 74–99; PULSE 72–85; RESP 13–20; TEMP 36.3–37.1; O2SAT 95–100
--- NOTE | ~2024-12-11 | XR_ITS ---
EXAMINATION: XR abdomen/kub 1V DATE: 12/11/2024 12:39 INDICATION: Kidney stone. TECHNIQUE: A supine view of the abdomen on 2 radiographs was obtained. COMPARISON: CT abdomen and pelvis 11/24/2024 FINDINGS: There are no dilated loops of bowel. There is a right internal ureteral stent in expected p osition. There is a 9 mm stone in right renal pelvis. There are phleboliths in the pelvis. IMPRESSION: 1. 9 mm stone in the right renal pelvis with right internal ureteral stent in expected position. Reviewed, dictated and finalized at location A. [employer] REPRESENTATIVE IMPRESSION: 1. 9 mm stone in the right renal pelvis with right internal ureteral stent in e xpected position.
--- NOTE | 2024-12-11 06:38 | WPDHPUPDATE1 ---
History and Physical Update Update Date/Time: 12/11/24 06:38 History and Physical has been reviewed, including an updated exam of the patient. There are NO changes in the patient's condition. Risks, benefits, and alternatives have been discussed and questions answered. Patient agrees to proceed with procedure.
[2024-12-11] MEDS: LACTATED RINGERS 1,000 ML 30 ML IV CONT (13:10)
--- NOTE | 2024-12-11 13:22 | WPDANESEPPF ---
Anes - Initial Pre Proc Eval Procedure: Operation Date: 12/11/24 14:30 Proposed Procedures p Right Extracorporeal Shock Wave Lithotripsy - Grayson Salcedo MD s Cystoscopy with Possible Right Stent Removal / Placement - Grayson Salcedo MD Date/Time: 12/11/24 13:22 Surgeon: Grayson Salcedo MD Pre Op Diagnosis: Rt Renal Stone Patient Data Age: 49 Gender: F Height: 1.63 m Weight: 84.8 kg Allergies Allergy/AdvReac Type Severity Reaction Status Date / Time No Known Allergies Allergy Mild Verified 12/08/24 17:00 Home Medications ?Medication ?Instructions ?Recorded ?Confirmed ?Type No Home Medications 12/11/24 12/11/24 History Patient hx anesthesia problems: none Family hx anesthesia problems: none Results Review: All pre-operative results and documents have been reviewed as part of the pre-operative evaluation. [facility] Past Medical History Medical History Leukocytosis Sepsis Urinary tract infection Surgical History Surgical History (Updated 12/11/24 @ 13:22 by Vinicius Fernandez MD) Hx of cystoscopy Social History Social History Smoking status: Never smoker Second hand tobacco smoke exposure: No Alcohol intake: never Substance use: never Substance use type: does not use Do You Feel Safe in your Home?: Yes Lack of Transportation: No Lack of Food: Never True Current Housing: I Have Housing Concerned About Future Housing: No Difficulty Paying Gas/Electric Bills: No Difficulty Paying for Meds: No Currently Unemployed: No Education: Master's Degree or Higher Difficulty w/ Childcare or Family Care: No Living arrangements: with family Spiritual care concerns: No Anes - Eval Final PreProcedure Day of Procedure 12/11/24 13:22 Patient weight: obese Heart: regular rate and rhythm Lungs: clear to auscultation Airway: Mallampati scale class II Neurological: alert and oriented Last oral intake: >/= 8 hours ASA classification: II Emergent: no Anesthetic plan: proceed Anesthesia type and monitoring: general LMA and standard monitoring Results Review: All pre-operative results and documents have been reviewed as part of the pre-operative evaluation. Informed Consent: The patient's anesthetic plan and its attendant risks and benefits were discussed with the patient/family/POA. Questions were solicited and answers provided to the satisfaction of the patient/family/POA.
[2024-12-11] MEDS: ceFAZolin 2 GM/D5W 50 ML 2 GM/50 ML BAG IVPB (13:30)
--- NOTE | 2024-12-11 13:48 | P.OP_ITS ---
Procedure Note - Detailed Date of Procedure 12/11/24 Pre-op Diagnosis Rt Renal Stone Post-op Diagnosis Same Procedure Performed Cystoscopy, right ureteral stent removal, right ESWL Surgeon Grayson Salcedo MD Anesthesia General Description of Procedure The patient was brought to the operative suite where she was placed in the frog- legged position on the Dornier lithotripter table. Flexible cystoscopy was undertaken with a 16F flexible cystoscopy. Her urethra and bladder neck were endoscopically normal. The bladder mucosa was normal and there was a single, orthotopic ureteral orifice bilaterally. The tip of the indwelling. The patient was then repositioned in the supine position and the focal point of the lithotriptor was placed at a 9mm right renal calculus. A total of 2500 shocks were delivered at a power setting of 1-4. There appeared to be good fragmentation of the stone. The patient tolerated the procedure well and was taken to the recovery room in good condition. Drains No Packing No Pathology None sent Complications No immediate complications Condition Stable
[2024-12-11] MEDS: LIDOCAINE 2% GEL UROJET 10 ML PKG MUCOUS MEM (14:22)
== END 2024-12-11 15:46 | disposition home or self-care (01) ==
PROVIDERS: PCP Family Medicine; Visit Provider Urology
PROC: (CPT 50590; principal; 2024-12-11 14:30)
PROC: (CPT 52352; 2024-12-11 14:30)
DX: N20.0 Calculus of kidney (principal); D72.829 Elevated white blood cell count, unspecified; E66.9 Obesity, unspecified; Z68.32 Body mass index [BMI] 32.0-32.9, adult; Z98.890 Other specified postprocedural states
CPT/HCPCS: 52310; 50590; 74018; C1769; J0690; J1100; J2003; J2250; J2405; J2704; J3010; J7030; J7120

== ENCOUNTER 2024-12-23 06:48 | Outpatient (CLI) | payer BC, SELFPAY ==
--- NOTE | ~2024-12-23 | XR_ITS ---
EXAMINATION: XR abdomen/kub 1V DATE: 12/23/2024 07:01 INDICATION: Right ureteral stone. TECHNIQUE: A supine view of the abdomen on 2 radiographs was obtained. COMPARISON: CT abdomen 11/24/2024, abdomen radiographs 12/11/2024 FINDINGS: There are no dilated loops of bowel. There are phleboliths in the pelvis. There is no visib le urolithiasis. IMPRESSION: 1. No visible urolithiasis. Reviewed, dictated and finalized at location A. AL ASSISTED THERAPIST IMPRESSION: 1. No visible urolithiasis.
== END 2024-12-23 06:49 | disposition home or self-care (01) ==
PROVIDERS: PCP Family Medicine; Visit Provider Urology
DX: N20.0 Calculus of kidney (principal)
CPT/HCPCS: 74018